=== PATIENT | female | born 1985 | race Caucasian/White ===

== ENCOUNTER 2019-11-10 18:20 | Inpatient (IN) | payer OTHER, SELFPAY ==
--- NOTE | ~2019-11-10 | XR_ITS ---
EXAMINATION: XR chest 2V DATE: 11/10/2019 19:41 INDICATION: Transient alteration of awareness TECHNIQUE: frontal and lateral views of the chest were obtained. COMPARISON: Chest radiograph dated 04/27/2019 FINDINGS: Relatively symmetric nipple shadows project over the bilateral anterior fifth ribs. Lungs are clear w ith no focal airspace opacities, pulmonary edema, pleural effusion or pneumothorax. The cardiomediast inal silhouette is normal. Cholecystectomy clips in the right upper quadrant. IMPRESSION: 1. No acute cardiopulmonary disease. Reviewed, dictated and finalized at location A. [facility]
--- NOTE | 2019-11-10 18:31 | ED.GENADULT ---
HPI - General Adult General Chief complaint: Unspecified Stated complaint: ELEVATED BLOOD SUGAR EARLIER TODAY Time Seen by Provider: 11/10/19 18:26 Source: patient, family and RN notes reviewed Mode of arrival: ambulatory Limitations: clinical condition History of Present Illness HPI narrative: A 34 y/o female, with a hx of DM I, presents to the ED d/t elevated BS. Per family member states that the pt has been in bed for the past 3 days because she felt like she was getting the flu . Since the pt has developed increasing generalized weakness and confusion and has been unable to walk. The pt's BS was 362 in triage. The family also notes that the pt is a known IV drug user. The pt keeps screaming that it hurts it hurts without any explanation of where when asked. The family denies the pt having any fevers or trying any treatments BOX MACHINE OPERATOR. complaint: Elevated BS Onset (ago): day(s) (3) Associated symptoms: confusion and weakness (generalized) Treatments prior to arrival: none Related Data Home Medications Medication Instructions Recorded Confirmed gabapentin 600 mg PO TID 08/25/19 08/25/19 ibuprofen 800 mg PO PRN 08/25/19 08/25/19 insulin glargine [Lantus Solostar 30 unit SUBCUT BID 08/25/19 08/25/19 U-100 Insulin] insulin lispro See Rx Instructions .ROUTE .COMPLEX 08/25/19 08/25/19 Allergies Allergy/AdvReac Type Severity Reaction Status Date / Time No Known Allergies Allergy Verified 11/10/19 19:01 Review of Systems Review of Systems: Narrative: Information was provided by family member. All systems reviewed & are unremarkable except as noted in HPI and below ROS unobtainable: unobtainable due to mental condition Constitutional: Constitutional: Denies fever(s) and Reports weakness (generalized) Neurologic: Reports confusion PMFSH Past Medical History Medical History Ankle fracture, right Anxiety Asthma Bipolar disorder Bronchitis Depression Ectopic HLD (hyperlipidemia) HPV (human papilloma virus) infection PCOS (polycystic ovarian syndrome) Peripheral neuropathy Schizophrenia Type 1 diabetes mellitus UTI (urinary tract infection) Surgical History Surgical History H/O LEEP Hx of cholecystectomy Family History Family History Grandparent Diabetes mellitus Acute myocardial infarction Hypertension Other Congestive heart failure Social History Social History Smoking packs per day: 0.5 Smoking cigarettes per day: 10.0 Years smoked: 16 Smoking pack-years: 8.00 Smoking status: Current every day smoker Tobacco type: cigarettes Alcohol intake: never Substance use: current Substance use type: marijuana and IV drugs Last use: 08/24/19 Gender identity (if verbalized by the patient): Female Spiritual care concerns: No Agree to blood products: Yes Comments PCP: Dr. Fox. Exam Const: General: acute distress moderate and ill appearing acutely and chronically Nutritional Appearance: thin HENMT: Mouth: Yes lip normal and Yes dry mucous membranes (with oral thrush) Eyes: Conjunctivae: conjunctivae normal Pupils: Equal, round and reactive pupils present Resp: Effort & Inspection: tachypneic Auscultation: clear to auscultation bilaterally Cardio: Rate: tachycardic Rhythm: regular rhythm GI: GI Palp: Yes Soft to palpation and Yes Tenderness to palpation present (GI) (diffuse but not consistent) Auscultation: normal bowel sounds Back/Spine/Pelvis: Other: Full ROM. Skin: General skin exam: normal color, dry skin and other (warm) Neuro: General: No patient oriented x3 (x2) and moves all extremities Extrem: General: full ROM Course Consultations Consultation #1: Discussed case with Dr. Hoffman (Handy Man). Accepts the pt to the ICU. Date:
[2019-11-10 18:34] LABS: Glucose Point of Care 362 (65-105)
--- NOTE | 2019-11-10 18:38 | ECG_ITS ---
Measurements Intervals [place] Rate: 90 P: 85 NE: 143 QRS: 15 QRSD: 81 T: 90 QT: 377 QTc: 462 Interpretive Statements SINUS RHYTHM RIGHT ATRIAL ENLARGEMENT LEFT ATRIAL ENLARGEMENT BORDERLINE T WAVE ABNORMALITY- DIFFUSE LEADS BASELINE ARTIFACT- I, III BORDERLINE ECG Electronically Signed On 11-11-2019 15:32:23 TRAILER STEERER by Estiven Farah D.O.
[2019-11-10 18:52] VITALS: BP 129/103; PULSE 88; RESP 13; TEMP 36.6; O2SAT 100
[2019-11-10] MEDS: SODIUM CHLORIDE 0.9% IV 3,000 ML 999 ML IV CONT (19:08)
[2019-11-10 19:25] LABS: Alveolar/Arterial O2 Gradient 17.1 mmHg; Base Excess ABG -12.9 mEq/l (+/-2.0); Carboxyhemoglobin 0.6 % THb (0-2.0); Fractional Inspired Oxygen 21 %; HCO3 ABG 11.8 mEq/l (22.0-26.0); Methemoglobin ABG 0.4 %THb (0-1.5); Oxygen Content ABG 20.7 %vol (16.0-22.0); Oxygen Saturation ABG 97.1 % (95.0-100.0); Oxyhemoglobin 96.4 % THb (90.0-100.0); PCO2 ABG 25.5 mmHg (35.0-45.0); PO2 ABG 102.1 mmHg (80.0-100.0); PO2 FiO2 Ratio Arterial Blood 4.86 %; Reduced Hemoglobin 2.6 %THb (0-5.0); Total Hemoglobin 15.2 g/dL (12.0-18.0)
[2019-11-10 19:26] LABS: Device ROOM AIR; Site Drawn RIGHT BRACHIAL; pH ABG 7.284 (7.350-7.450)
[2019-11-10 19:40] LABS: Prothrombin Time 13.3 Seconds (11.1-14.7)
[2019-11-10 19:41] LABS: Partial Thromboplastin Time 27.9 SECONDS (22.3-36.8)
[2019-11-10 19:46] LABS: Alanine Aminotransferase 25 U/L (4-35); Alkaline Phosphatase 118 U/L (38-126); Aspartate Amino Transferase 15 U/L (14-36); Beta-Hydroxybutyrate/Acetoacetate 3.72 mmol/L (0.02-0.27); Bilirubin,Total 0.6 mg/dL (0.2-1.3); Blood Urea Nitrogen 18 mg/dL (7-17); CRP < 0.5 mg/dL (<1.0); Carbon Dioxide 8 mmol/L (22-30); Chloride 99 mmol/L (98-107); Estimated CRCL calculation 119 ml/min; Estimated Glomerular Filt Rate > 60; Glucose 335 mg/dL (65-105); Magnesium 1.6 mg/dL (1.6-2.3); Phosphorus 2.6 mg/dL (2.5-4.5); Sodium 128 mmol/L (137-145)
[2019-11-10 20:05] VITALS: RESP 12; O2SAT 98
[2019-11-10 20:16] LABS: Lactic Acid Reflex 1.7 mmol/L (0.7-2.1)
[2019-11-10 20:22] LABS: Add Urine Microscopic? YES; Appearance Urine Clear (Clear); Bacteria Urine 1+ /hpf; Bilirubin Urine Negative (Negative); Blood Urine 1+ (Negative); Color Urine Yellow (Yellow); Glucose Urine UA 3+ mg/dL (Negative); Ketones Urine 2+ mg/dL (Negative); Leukocyte Esterase Ur 1+ LEU/UL (Negative); Mucus Urine Rare /lpf; Nitrate Urine Positive (Negative); Protein Urine 2+ mg/dL (Negative); Specific Grav Ur 1.027 (1.001-1.035); Squamous Epithelial Cell Urine Few /hpf (Few); Urobilinogen Urine Negative mg/dL (<2.0); WBC Urine 51-75 /hpf
[2019-11-10] MEDS: INSULIN HUMAN REGULAR (*BKC) 100 UNITS/ML 6 UNITS IV PUSH (21:00)
[2019-11-10] MEDS: INSULIN HUMAN REGULAR (*BKC) 100 UNITS in SODIUM CHLORIDE 0.9% IV 99 ML 5.5 UNITS IV CONT (21:01)
[2019-11-10 21:07] LABS: Glucose Point of Care 317 (65-105)
[2019-11-10 21:39] LABS: Amphetamine Screen Urine Negative (Negative); Barbiturate Screen Urine Negative (Negative); Benzodiazepines Screen Urine Negative (Negative); Cannabinoid Screen Urine Positive (Negative); Cocaine Screen Urine Negative (Negative); Methadone Screen Urine Negative (Negative); Opiate Screen Urine Positive (Negative); Phencyclidine Screen Urine Negative (Negative)
[2019-11-10] MEDS: KCL 20 MEQ/D5/0.45% SOD CHL 1,000 ML 125 ML IV CONT (21:46)
[2019-11-10] MEDS: SODIUM CHLORIDE 0.9% IV 1,000 ML 150 ML (21:47)
[2019-11-10 22:08] LABS: Glucose Point of Care 249 (65-105)
--- NOTE | 2019-11-10 22:10 | PC.NURSE ---
Per EDP start IV abx. Multiple attempts by this RN, 2 ED techs and the EDP to obtain blood cultures.
[2019-11-10 22:11] VITALS: BP 112/70; PULSE 100; RESP 16; O2SAT 98
--- NOTE | 2019-11-10 22:29 | PM.IMHP ---
H&P: HPI History of Present Illness Chief complaint: DKA Narrative: This is a 34-year-old female with known type 1 diabetes mellitus with peripheral neuropathy that was diagnosed approximately 2 years ago and who is well known to our hospitalist service for previous admissions for poorly controlled diabetes. The patient presented to the hospital [facility] with her aunt whom she lives with secondary to diffuse body aches and hyperglycemia. The patient's aunt admits to me that the patient has not been taking her medications as prescribed and has not been watching her blood sugars carefully. Over the past few days the patient has gotten more nauseated, complaining of diffuse body aches, with increased urinary frequency, and more somnolent. She denies any recent fevers, chest pain, shortness of breath, dysuria, hematuria, diarrhea, or rectal bleeding. She has had a sporadic cough. The patient is known to smoke cigarettes chronically and continues to do so. The patient's and tells me that she has not used methamphetamines over the past 5 days although she is known to chronically use methamphetamine. The patient was evaluated emergency room [facility] and found to be dehydrated, hyperglycemic with a blood glucose of 335 mg/dl, an elevated anion gap of 21, pH of 7.2 eight for on arterial blood gas and positive serum ketones. The patient has been given normal saline IV bolus in the ER and started on an insulin drip. Computer Lab Aide has been consulted and we been asked to admit the patient to the hospital for further care. Review of Systems Review of Systems: All systems reviewed & are unremarkable except as noted in HPI and below PMFSH Past Medical History Medical History Ankle fracture, right Anxiety Asthma Bipolar disorder Bronchitis Depression Ectopic HLD (hyperlipidemia) HPV (human papilloma virus) infection PCOS (polycystic ovarian syndrome) Peripheral neuropathy Schizophrenia Type 1 diabetes mellitus UTI (urinary tract infection) Surgical History Surgical History H/O LEEP Hx of cholecystectomy Family History Family History Grandparent Diabetes mellitus Acute myocardial infarction Hypertension Other Congestive heart failure Social History Social History Smoking packs per day: 0.5 Smoking cigarettes per day: 10.0 Years smoked: 16 Smoking pack-years: 8.00 Smoking status: Current every day smoker Tobacco type: cigarettes Alcohol intake: never Substance use: current Substance use type: marijuana and IV drugs Last use: 08/24/19 Gender identity (if verbalized by the patient): Female Spiritual care concerns: No Agree to blood products: Yes Meds Home Medications and Allergies Home Medications Medication Instructions Recorded Confirmed Type gabapentin 600 mg PO TID 08/25/19 08/25/19 History ibuprofen 800 mg PO PRN 08/25/19 08/25/19 History insulin glargine [Lantus Solostar 30 unit SUBCUT BID 08/25/19 08/25/19 History U-100 Insulin] insulin lispro See Rx Instructions .ROUTE .COMPLEX 08/25/19 08/25/19 History Allergies Allergy/AdvReac Type Severity Reaction Status Date / Time No Known Allergies Allergy Verified 11/10/19 19:01 Vital Signs Vital Signs - 24 hr 11/10/19 18:52 11/10/19 20:05 11/10/19 22:11 Temperature 36.6 C Pulse Rate 88 100 Respiratory Rate 13 12 16 Blood Pressure 129/103 H 112/70 Pulse Oximetry 100 98 98 Exam Const: General: ill appearing and other (somnolent+) Nutritional Appearance: thin Orientation/consciousness: Other orientation findings (somnolent+) HENMT: Head: normal to inspection General nose exam: Normal external nose present Face and sinus: normal facial exam Mouth: Yes Normal oral and palatal mucosa present
[2019-11-10 23:01] LABS: Glucose Point of Care 290 (65-105)
[2019-11-10 23:45] VITALS: BP 124/84; PULSE 88; RESP 18; O2SAT 96
[2019-11-11] VITALS (12 sets, daily range): BP systolic 84–114; BP diastolic 59–81; PULSE 77–124; RESP 12–22; TEMP 36.6; O2SAT 97–100; BMI 19.1
--- NOTE | 2019-11-11 00:03 | PCRCNOTE ---
Entered ED 2 for ABG draw. Agustina Yepez, lab, drawing venous blood. Discussed ABG draw with patient who became upset. Patient stated Your not sticking me until I get something to eat. If you stick me I'll punch you in the face. Patient then looked at Agustina and stated you're kathy you didn't get punched in the face . I replied to patient to be careful, that we don't tolerate aggression here. I spoke with RN Cherelle Toney - the decision to not draw the ABG was made.
[2019-11-11 00:04] LABS: Basophils Absolute Auto 0.1 K/mm3 (0.0-0.1); Basophils Percent Auto 0.5 % (0.2-1.2); Eosinophils Absolute Auto 0.1 K/mm3 (0-0.3); Eosinophils Percent Auto 0.7 % (0-4.4); Hematocrit 34.8 % (37.0-47.0); Immature Granulocyte Absolute 0.04 K/mm3 (0.00-0.031); Immature Granulocyte Percent A 0.4 % (0-0.5); Lymphocytes Absolute Auto 3.46 K/mm3 (0.9-3.2); Lymphocytes Percent Auto 30.9 % (18.3-44.2); Mean Corpuscular HGB Conc 34.5 g/dl (32-36); Mean Corpuscular Hemoglobin 30.5 pg (26-34); Mean Corpuscular Volume 88.3 fl (80-100); Mean Platelet Volume 10.3 fl (7.4-10.4); Monocytes Absolute Auto 0.7 K/mm3 (0.1-0.6); Monocytes Percent Auto 6.3 % (2.6-8.5); Neutrophils Absolute Auto 6.8 K/mm3 (1.3-6.7); Neutrophils Percent Auto 61.2 % (45.5-73.1); Platelet Count Result 228 k/mm3 (150-375); Red Blood Count 3.94 M/mm3 (4.2-5.4); White Blood Count 11.2 K/mm3 (4.5-10.0)
--- NOTE | 2019-11-11 00:04 | PC.NURSE ---
ED respiratory therapist, Crissy, comes to this nurse and states the patient stated I will punch you in the face if you poke me with that needle again until I get something to eat. Crissy stated she informed the patient that the hospital does not tolerate aggression toward staff or other healthcare workers or patients. Agustina, from Phlebotomy is in room drawing blood from patient at this time. This nurse goes into room to speak with patient and informs her on the importance of getting the ABG. Patient yelling leave me alone! Give me something to eat and drink! I'm not doing anything until I get something!! Patient thrashing in bed, pulling her leads off and pulse ox off. This nurse informs patient again that she is NPO and I am unable to give her anything to eat or drink per doctors orders.
--- NOTE | 2019-11-11 00:10 | PC.NURSE ---
This nurse informs EDP that patient is refusing bedside blood glucose and is pulling off her leads and is refusing everything until I get something to eat or drink. EDP goes into room and speaks with patient.
[2019-11-11 00:19] LABS: Blood Urea Nitrogen 16 mg/dL (7-17); Calcium 7.8 mg/dL (8.4-10.2); Carbon Dioxide 13 mmol/L (22-30); Chloride 105 mmol/L (98-107); Estimated CRCL calculation 119 ml/min; Estimated Glomerular Filt Rate > 60; Glucose 266 mg/dL (65-105); Magnesium 1.3 mg/dL (1.6-2.3); Phosphorus 1.6 mg/dL (2.5-4.5); Sodium 131 mmol/L (137-145)
[2019-11-11 00:32] LABS: Glucose Point of Care 236 (65-105)
[2019-11-11 00:53] LABS: Hemoglobin A1C > 14.0 % (<5.7)
[2019-11-11 02:05] LABS: Glucose Point of Care 252 (65-105)
--- NOTE | 2019-11-11 02:20 | ADMGEN ---
This patient, Madai Jackson, was admitted to -. Patient/family oriented to hospital policies and general routines including ID bracelet, bed and alarms, visiting hours, pain management, procedures, bathroom and other care routines, personal items, smoking policy, room service/diet, and visiting hours. Valuables list has been completed. Information on how to activate the Rapid Response Team has been discussed. Patient/Family are encouraged to report perceived risks to care and to ask questions if they do not understand what they are told or what they should do.
[2019-11-11 02:40] LABS: Glucose Point of Care 228 (65-105)
[2019-11-11] MEDS: MAGNESIUM SULF 2 GM/WATER 50ML 2 GM/50 ML BAG IVPB (02:55)
[2019-11-11] MEDS: KCL 20 MEQ/SW 100 ML 100 ML 50 MEQ IVPB (03:31)
[2019-11-11 03:44] LABS: Glucose Point of Care 246 (65-105)
--- NOTE | 2019-11-11 03:45 | PC.NURSE ---
Attempted to administer KCl IVPB per ERP order. Pt stated that infusion was burning. Rate was decreased by half, down to 25mls/hr. Pt states infusion was still burning. States take it out. Take the IV out. Infusion was put on hold. Notified Dr. Isabel that pt is refusing KCl. No new orders at this time. Peripheral IV flushes without any issues.
[2019-11-11 04:22] LABS: Glucose Point of Care 225 (65-105)
[2019-11-11 04:31] LABS: Basophils Absolute Auto 0.1 K/mm3 (0.0-0.1); Basophils Percent Auto 0.4 % (0.2-1.2); Eosinophils Absolute Auto 0.1 K/mm3 (0-0.3); Eosinophils Percent Auto 1.2 % (0-4.4); Hematocrit 34.7 % (37.0-47.0); Immature Granulocyte Absolute 0.06 K/mm3 (0.00-0.031); Immature Granulocyte Percent A 0.5 % (0-0.5); Lymphocytes Absolute Auto 4.09 K/mm3 (0.9-3.2); Lymphocytes Percent Auto 35.6 % (18.3-44.2); Mean Corpuscular HGB Conc 34.6 g/dl (32-36); Mean Corpuscular Volume 86.8 fl (80-100); Mean Platelet Volume 10.1 fl (7.4-10.4); Monocytes Absolute Auto 0.7 K/mm3 (0.1-0.6); Monocytes Percent Auto 6.2 % (2.6-8.5); Neutrophils Absolute Auto 6.4 K/mm3 (1.3-6.7); Neutrophils Percent Auto 56.1 % (45.5-73.1); Platelet Count Result 222 k/mm3 (150-375); White Blood Count 11.5 K/mm3 (4.5-10.0)
[2019-11-11 04:34] LABS: Base Excess ABG -8.9 mEq/l (+/-2.0); Fractional Inspired Oxygen 21 %; HCO3 ABG 15.1 mEq/l (22.0-26.0); Oxygen Content ABG 17.8 %vol (16.0-22.0); Oxygen Saturation ABG 97.8 % (95.0-100.0); Oxyhemoglobin 96.6 % THb (90.0-100.0); PCO2 ABG 27.5 mmHg (35.0-45.0); PO2 ABG 106.8 mmHg (80.0-100.0); PO2 FiO2 Ratio Arterial Blood 5.09 %; pH ABG 7.357 (7.350-7.450)
[2019-11-11 04:36] LABS: Device ROOM AIR; Modified Allen's Test Pass; Site Drawn LEFT RADIAL
[2019-11-11 04:41] LABS: Blood Urea Nitrogen 15 mg/dL (7-17); Calcium 8.1 mg/dL (8.4-10.2); Carbon Dioxide 17 mmol/L (22-30); Chloride 106 mmol/L (98-107); Estimated CRCL calculation 118 ml/min; Estimated Glomerular Filt Rate > 60; Glucose 235 mg/dL (65-105); Potassium 3.1 mmol/L (3.4-5.0); Sodium 133 mmol/L (137-145)
[2019-11-11 05:24] LABS: Glucose Point of Care 204 (65-105)
--- NOTE | 2019-11-11 05:25 | PC.NURSE ---
Pt belligerent with staff and spitting on the floor. States she needs water. Pt has been instructed that she cannot have anything to eat or drink per physician order while she is on the insulin gtt. Pt states she is nauseated. Pt states she has thrush and needs to rinse her mouth out, but refuses to use swabs. Pt's mother is at bedside and is asking pt to listen to staff.
[2019-11-11] MEDS: KCL 20 MEQ/D5/0.45% SOD CHL 1,000 ML 150 ML IV CONT (05:41)
[2019-11-11 06:34] LABS: Glucose Point of Care 177 (65-105)
--- NOTE | 2019-11-11 07:08 | PC.NURSE ---
Left message for Haritha, educational audiologist, asking for callback regarding a consult on this pt. Notified community relations director that call was placed.
[2019-11-11 07:35] LABS: Glucose Point of Care 170 (65-105)
[2019-11-11 07:56] LABS: Blood Urea Nitrogen 14 mg/dL (7-17); Calcium 8.3 mg/dL (8.4-10.2); Carbon Dioxide 18 mmol/L (22-30); Chloride 107 mmol/L (98-107); Estimated CRCL calculation 118 ml/min; Estimated Glomerular Filt Rate > 60; Glucose 154 mg/dL (65-105); Potassium 3.3 mmol/L (3.4-5.0); Sodium 133 mmol/L (137-145)
[2019-11-11] MEDS: INSULIN GLARGINE (*BKC) 100 UNITS/ML 15 UNITS SUB-Q (09:34)
[2019-11-11 09:57] LABS: Glucose Point of Care 140 (65-105)
[2019-11-11 11:51] LABS: Blood Urea Nitrogen 14 mg/dL (7-17); Calcium 7.8 mg/dL (8.4-10.2); Carbon Dioxide 16 mmol/L (22-30); Chloride 101 mmol/L (98-107); Estimated CRCL calculation 118 ml/min; Estimated Glomerular Filt Rate > 60; Glucose 336 mg/dL (65-105); Potassium 3.8 mmol/L (3.4-5.0); Sodium 127 mmol/L (137-145)
--- NOTE | 2019-11-11 12:40 | WPDCNINT ---
Assessment and Plan Assessment and plan (1) DKA (diabetic ketoacidoses): Qualifiers: Diabetes mellitus complication detail: with coma Diabetes mellitus type: type 1 Qualified Code(s): E10.11 - Type 1 diabetes mellitus with ketoacidosis with coma Code(s): E11.10 - Type 2 diabetes mellitus with ketoacidosis without coma Status: Acute Assessment and Plan: Patient has been restarted on her home dose of Lantus along with SSI. Her IV fluids have been changed from D5 LR. she has been started on a diabetic diet. She will be continued on IV fluids. (2) Acute dehydration: Code(s): E86.0 - Dehydration Status: Acute Assessment and Plan: Continue IV hydration. With IV fluids. Urine output has been adequate and BUN creatinine are stable. (3) Abnormal urinalysis: Code(s): R82.90 - Unspecified abnormal findings in urine Status: Acute Assessment and Plan: Urine culture pending. Continue IV antibiotics. (4) Acute hyponatremia: Code(s): E87.1 - Hypo-osmolality and hyponatremia Status: Acute Assessment and Plan: Appears to be pseudohyponatremia secondary to hyperglycemia. (5) Tobacco abuse: Code(s): Z72.0 - Tobacco use Status: Chronic Assessment and Plan: The patient will need to be counseled on tobacco cessation. (6) Marijuana abuse: Code(s): F12.10 - Cannabis abuse, uncomplicated Status: Chronic Assessment and Plan: The patient will need to be counseled on marijuana abuse. Additional Plan total time spent - 35 min Full code Hand Router Operator Consult Note Consult date: 11/11/19 Time Seen: 12:52 HPI: Madai Jackson is a 34 year old female With past medical history significant for diabetes mellitus and polysubstance abuse, who presented to the emergency room along with her and due to feeling very tired and thirsty all the time. as per medical records patient has been noncompliant with her diabetic medications. Her U tox was also positive for opiates and marijuana. Patient has history of heroin and methamphetamine abuse. In the emergency room patient was noted to be very dehydrated. Her UA was positive for infection. Her white count was mildly elevated at 11.5. however she was noted to have sodium of 128 with a bicarb of 8. Her BUN creatinine were stable. Her blood glucose was 335. She was acidotic with the pH of 7.28. Patient was started on insulin drip per protocol. She was given 2 L of IV fluid bolus. She was placed on IV fluid protocol per DKA and was admitted to ICU for further care. On my assessment this morning patient continues to be on the insulin drip. She is also on D5 IV fluids. The patient is complaining of cramping abdominal pain as she feels she is very hungry and we are not giving her any food. She was given Lantus and IV fluids were continued. Her insulin drip has been turned off. She has been started on a diabetic diet. Review of Systems Review of Systems: Narrative: Constitutional- awake ,in no distress, hungry Eyes/ears/nose- No visual complaints , normal hearing CVS- denies SOB , chest pain , palpitations Resp- denies, SOB , cough , hemoptysis , congestion, wheezing GI- denies diarrhea, abdominal pain due to being hungry, nausea/vomiting , constipation neuro- denies LOC, SZ, syncope, weakness , neuropathy musculoskeletal- denies joint pain , deformity Skin- no new rashes or skin breakdown psychatric- denies depression, hallucinations , anxiety , mood swings PMFSH Past Medical History Medical History Ankle fracture, right Anxiety Asthma Bipolar disorder Bronchitis Depression Ectopic HLD (hyperlipidemia) HPV (human papilloma virus) infection PCOS (polycystic ovarian syndrome) Peripheral neuropathy Schizophrenia Type 1 diabetes mellitus UTI (urinary tract infection) Surgical History
[2019-11-11] MEDS: LACTATED RINGERS 1,000 ML 100 ML IV CONT (12:41)
[2019-11-11 13:25] LABS: Glucose Point of Care 339 (65-105)
[2019-11-11 15:44] LABS: Blood Urea Nitrogen 14 mg/dL (7-17); Calcium 7.9 mg/dL (8.4-10.2); Carbon Dioxide 15 mmol/L (22-30); Chloride 101 mmol/L (98-107); Estimated CRCL calculation 100 ml/min; Estimated Glomerular Filt Rate > 60; Glucose 392 mg/dL (65-105); Potassium 3.7 mmol/L (3.4-5.0); Sodium 129 mmol/L (137-145)
[2019-11-11] MEDS: IBUPROFEN 600 MG TABLET PO (17:04)
[2019-11-11] MEDS: INSULIN ASPART (*BKC) 100 UNITS/ML SUB-Q ×2 (17:09)
[2019-11-11] MEDS: GABAPENTIN 300 MG CAPSULE 600 MG PO (17:10)
[2019-11-11 19:59] LABS: Glucose Point of Care 368 (65-105)
--- NOTE | 2019-11-11 21:13 | PC.NURSE ---
pt yelling val wants a turkey sandwich rn advised her that her sugar is too high and that it could put her back on an insulin drip. pt sayd she doesnt care. advise pt she should not be yelling at her mom. pt say she doesnt care and wants a chicken sandwich. pt states she wants to go home. pt given AMA paperwork brought to front door in wheel chair after ivs removed
== END 2019-11-11 21:00 | disposition left against medical advice (07) | DRG 420 ==
LOC: ANHED 11-11 02:46 → ANHICU 11-11 05:59
PROVIDERS: Admitting Provider Family Medicine; Emergency Provider Emergency Medicine; Visit Provider Family Medicine
DX: E10.11 Type 1 diabetes mellitus with ketoacidosis with coma (principal); E86.0 Dehydration; N39.0 Urinary tract infection, site not specified; E87.1 Hypo-osmolality and hyponatremia; E10.42 Type 1 diabetes mellitus with diabetic polyneuropathy; F31.9 Bipolar disorder, unspecified; F20.9 Schizophrenia, unspecified; E78.5 Hyperlipidemia, unspecified; F17.210 Nicotine dependence, cigarettes, uncomplicated; F12.10 Cannabis abuse, uncomplicated; Z91.14 Patient's other noncompliance with medication regimen; Z90.49 Acquired absence of other specified parts of digestive tract
CPT/HCPCS: 36415; 36600; 51701; 71046; 80048; 80053; 80307; 81001; 82010; 82375; 82805; 82948; 83036; 83050; 83605; 83735; 84100; 85025; 85610; 85730; 86140; 87040; 87077; 87081; 87086; 87088; 87186; 87804; 93005; 96361; 96365; 96366; 96367; 96368; 99291; A9270; J0696; J1815; J3475; J3480; J7030; J7120

== ENCOUNTER 2020-01-22 20:07 | Inpatient (IN) | payer OTHER, SELFPAY ==
[2020-01-22] VITALS (9 sets, daily range): BP systolic 99–142; BP diastolic 33–96; PULSE 95–110; RESP 13–28; TEMP 36.8; O2SAT 99–100
--- NOTE | ~2020-01-22 | CT_ITS ---
EXAMINATION: CT abdomen pelvis w con INDICATION: Lower abdominal pain TECHNIQUE: Computed tomographic images of the abdomen and pelvis were obtained after the administrati on of 100 cc of Omnipaque 350 intravenous contrast. The dose-length product (DLP) was 342.18 mGy-cm. Automated exposure control and iterative reconstruction technique were employed. COMPARISON: None available FINDINGS: The lung bases are clear. The heart size is normal. The gallbladder is surgically absent. T he liver, spleen, pancreas, and adrenal glands are normal. There is heterogeneous enhancement involvi ng the upper pole of the left kidney with a 3.6 x 3.1 cm area of fluid and soft tissue density. There is a 6 mm cyst of the right kidney. No pathologically enlarged abdominal or pelvic lymph nodes are i dentified. The bladder is distended. There is mild lumbar spondylosis. IMPRESSION: 1. Heterogeneous enhancement of the left kidney upper pole with a 3.6 cm area of fluid and soft tissu e density which may reflect a phlegmon or abscess. Reviewed, dictated and finalized at location A. IMPRESSION: 1. Heterogeneous enhancement of the left kidney upper pole with a 3.6 cm area o f fluid and soft tissue density which may reflect a phlegmon or abscess.
--- NOTE | ~2020-01-22 | CT_ITS ---
EXAMINATION: CT brain wo con INDICATION: Headache COMPARISON: None TECHNIQUE: Standard unenhanced head CT. The dose-length product (DLP) was 605.33 mGy-cm. The mA was a djusted according to patient size. Iterative reconstruction technique was employed. FINDINGS: There is no intracranial hemorrhage, acute infarction, or abnormal mass lesion. The ventric les are normal. There is no abnormal mass effect or midline shift. The menjivar-white matter differentiat ion is normal. The basal cisterns are patent. The orbits are normal. The paranasal sinuses, mastoids and calvarium are normal. IMPRESSION: 1. No acute intracranial abnormality. Reviewed, dictated and finalized at location A.
--- NOTE | ~2020-01-22 | XR_ITS ---
EXAMINATION: XR chest 1V portable INDICATION: Chills TECHNIQUE: Portable AP chest at 2210 hours COMPARISON: 11/10/2019 FINDINGS: The lungs are free of acute opacities. There is no pleural effusion or pneumothorax. The ca rdiomediastinal silhouette is normal. The visualized bones and soft tissues are unremarkable. IMPRESSION: 1. No acute cardiopulmonary abnormality. Reviewed, dictated and finalized at location A.
[2020-01-22 20:17] LABS: Glucose Point of Care > 500 (65-105)
[2020-01-22] MEDS: SODIUM CHLORIDE 0.9% IV 1,000 ML 999 ML (20:25)
--- NOTE | 2020-01-22 21:00 | ECG_ITS ---
Measurements Intervals [place] Rate: 91 P: 76 AL: 157 QRS: 46 QRSD: 90 T: 89 QT: 343 QTc: 422 Interpretive Statements SINUS RHYTHM WITH SINUS ARRHYTHMIA RIGHT ATRIAL ENLARGEMENT BORDERLINE T WAVE ABNORMALITY- INF/LAT LEADS BASELINE ARTIFACT- V4-V6 BORDERLINE ECG Electronically Signed On 01-23-2020 7:51:47 CDT by Estiven Farah D.O.
--- NOTE | 2020-01-22 21:02 | ED.ABDPAIN ---
HPI - Abdominal Pain General Chief Complaint: Abdominal Pain Stated Complaint: abd pain, vomitting Time Seen by Provider: 01/22/20 20:43 Source: patient and family (mother) Mode of arrival: ambulatory Limitations: clinical condition History of Present Illness HPI narrative: This patient is 34 yo female with h/o IDDM, DKA who presents from home with nausea, vomiting and not feeling well. Patient is poor historian due to clinical condition. Her mother is at bedside and she states patient has not felt well for 3 days. Her mother states she had 2 episodes of vomiting today but denies vomiting prior to today. Patient does admit that she has not taken insulin in 3 days due to her not feeling. She does not explain exactly why she doesn't feel well. Patient states she has headache and her mother reports she has history migraines. Her mother states they have checked and patient has not been having a fever, cough, or cold symtpoms. Patient states she has not used methamphetamines in 4 days. . MD elicited complaint: abdominal pain Related Data Home Medications Medication Instructions Recorded Confirmed gabapentin 600 mg PO TID 08/25/19 01/23/20 ibuprofen 800 mg PO Q6H PRN 08/25/19 01/23/20 insulin glargine [Lantus Solostar 30 unit SUBCUT BID 08/25/19 01/23/20 U-100 Insulin] insulin lispro See Rx Instructions .ROUTE .COMPLEX 08/25/19 01/23/20 Allergies Allergy/AdvReac Type Severity Reaction Status Date / Time No Known Allergies Allergy Verified 11/10/19 19:01 Review of Systems Review of Systems: ROS unobtainable: Yes unobtainable due to medical condition Gastrointestinal: Gastrointestinal: Reports nausea Neurologic: Reports headache(s) PMFSH Past Medical History Medical History Ankle fracture, right Anxiety Asthma Bipolar disorder Bronchitis Depression Ectopic HLD (hyperlipidemia) HPV (human papilloma virus) infection PCOS (polycystic ovarian syndrome) Peripheral neuropathy Schizophrenia Type 1 diabetes mellitus UTI (urinary tract infection) Surgical History Surgical History H/O LEEP Hx of cholecystectomy Social History Social History Smoking packs per day: 0.5 Smoking cigarettes per day: 10.0 Years smoked: 16 Smoking pack-years: 8.00 Smoking status: Current every day smoker Tobacco type: cigarettes Alcohol intake: unknown Substance use: current Substance use type: marijuana and methamphetamine Last use: 01/18/20 Gender identity (if verbalized by the patient): Female Spiritual care concerns: No Agree to blood products: Yes Exam Const: General: ill appearing Nutritional Appearance: thin HENMT: Head: normocephalic and atraumatic Mouth: Yes dry mucous membranes and Yes Abnormal oral and palatal mucosa present (thrush) Teeth and gingiva: abnormal tooth and associated gingiva Throat: posterior oropharynx abnormal (thrush) Eyes: Pupils: Equal, round and reactive pupils present EOM: EOMs intact bilaterally Neck: Neck: no lymphadenopathy Chest: Chest palpation & inspection: normal inspection of the chest Resp: Effort & Inspection: normal respiratory effort Auscultation: clear to auscultation bilaterally Cardio: Rate: regular rate Rhythm: regular rhythm Heart sounds: no murmurs GI: Inspection: non-distended GI Palp: Yes Soft to palpation, No Tenderness to palpation present (GI), No Guarding due to palpation present (GI) and No Rigid due to palpation Skin: General skin exam: mottling Neuro: General: moves all extremities Extrem: General: no pedal edema Psych: Appearance: disheveled Course Reevaluation(s) Reevaluation #1: Patient presented in DKA. She was found to have significant leukocytosis so CT scan performed. CT scan shows possible phlegmon/abscess to left kidney with a
[2020-01-22] MEDS: METOCLOPRAMIDE HCL INJ 10 MG/2 ML VIAL IV PUSH (21:15)
[2020-01-22] MEDS: INSULIN HUMAN REGULAR (*BKC) 100 UNITS/ML IV PUSH (21:15)
[2020-01-22 21:22] LABS: Alveolar/Arterial O2 Gradient 2.8 mmHg; Base Excess ABG -25.3 mEq/l (+/-2.0); Carboxyhemoglobin 0.8 % THb (0-2.0); Fractional Inspired Oxygen 21 %; Methemoglobin ABG 0.4 %THb (0-1.5); Oxygen Saturation ABG 97.4 % (95.0-100.0); Oxyhemoglobin 96.6 % THb (90.0-100.0); PCO2 ABG 11.3 mmHg (35.0-45.0); PO2 ABG 133.4 mmHg (80.0-100.0); PO2 FiO2 Ratio Arterial Blood 6.35 %; Reduced Hemoglobin 2.2 %THb (0-5.0); Total Hemoglobin 15.3 g/dL (12.0-18.0); pH ABG 7.046 (7.350-7.450)
[2020-01-22 21:23] LABS: Device ROOM AIR; Modified Allen's Test Pass; Site Drawn LEFT BRACHIAL
--- NOTE | 2020-01-22 21:24 | PC.NURSE ---
Patient refused for tech to draw blood. patient stated that she will fight engineering technician if they stick her again.
--- NOTE | 2020-01-22 21:47 | PC.NURSE ---
Patient is a hard stick. Call lab 4 times to have somebody to come up.
[2020-01-22] MEDS: SODIUM CHLORIDE 0.9% IV 1,000 ML 999 ML IV CONT (21:49)
[2020-01-22 21:58] LABS: Add Urine Microscopic? YES; Appearance Urine Cloudy (Clear); Bacteria Urine Trace /hpf; Bilirubin Urine Negative (Negative); Blood Urine 2+ (Negative); Color Urine Straw (Yellow); Glucose Urine UA 3+ mg/dL (Negative); Ketones Urine 2+ mg/dL (Negative); Leukocyte Esterase Ur 3+ LEU/UL (Negative); Mucus Urine Rare /lpf; Nitrate Urine Negative (Negative); Protein Urine 2+ mg/dL (Negative); RBC Urine 51-75 /hpf (0-2); Specific Grav Ur 1.021 (1.001-1.035); Squamous Epithelial Cell Urine Occasional /hpf (Few); Urobilinogen Urine Negative mg/dL (<2.0); WBC Urine >75 /hpf
[2020-01-22 22:14] LABS: Basophils Absolute Auto 0.2 K/mm3 (0.0-0.1); Basophils Percent Auto 0.7 % (0.2-1.2); Hematocrit 47.4 % (37.0-47.0); Hemoglobin 15.1 g/dL (12.0-15.0); Immature Granulocyte Absolute 0.36 K/mm3 (0.00-0.031); Immature Granulocyte Percent A 1.5 % (0-0.5); Lymphocytes Absolute Auto 3.04 K/mm3 (0.9-3.2); Lymphocytes Percent Auto 12.4 % (18.3-44.2); Mean Corpuscular HGB Conc 31.9 g/dl (32-36); Mean Corpuscular Hemoglobin 31.3 pg (26-34); Mean Corpuscular Volume 98.3 fl (80-100); Monocytes Absolute Auto 1.5 K/mm3 (0.1-0.6); Monocytes Percent Auto 6.2 % (2.6-8.5); Neutrophils Absolute Auto 19.3 K/mm3 (1.3-6.7); Neutrophils Percent Auto 79.2 % (45.5-73.1); Platelet Count Result 340 k/mm3 (150-375); Red Blood Count 4.82 M/mm3 (4.2-5.4); Red Cell Distribution Width 12.9 % (11.5-14.5); White Blood Count 24.4 K/mm3 (4.5-10.0)
[2020-01-22 22:28] LABS: Alanine Aminotransferase 24 U/L (4-35); Albumin Level 4.4 g/dL (3.5-5.1); Alkaline Phosphatase 184 U/L (38-126); Aspartate Amino Transferase 17 U/L (14-36); Bilirubin,Total 0.3 mg/dL (0.2-1.3); Blood Urea Nitrogen 25 mg/dL (7-17); Calcium 8.9 mg/dL (8.4-10.2); Carbon Dioxide < 5 mmol/L (22-30); Chloride 98 mmol/L (98-107); Estimated CRCL calculation 52 ml/min; Estimated Glomerular Filt Rate 52; Lipase 190 U/L (23-300); Magnesium 1.9 mg/dL (1.6-2.3); Phosphorus 5.8 mg/dL (2.5-4.5); Potassium 5.3 mmol/L (3.4-5.0); Sodium 132 mmol/L (137-145)
[2020-01-22 22:36] LABS: Glucose 708 mg/dL (65-105)
[2020-01-22 22:57] LABS: Hemoglobin A1C > 14.0 % (<5.7)
[2020-01-22 23:08] LABS: Beta-Hydroxybutyrate/Acetoacetate 7.77 mmol/L (0.02-0.27)
[2020-01-23] VITALS (11 sets, daily range): BP systolic 100–129; BP diastolic 64–104; PULSE 81–112; RESP 15–20; TEMP 36.8–36.9; O2SAT 99–100; BMI 18.7
--- NOTE | 2020-01-23 00:09 | PC.NURSE ---
PT BEDSIDE BLOOD SUGAR READ HIGH, Dr. Hahn made aware. Ok to start Insulin drip at rate per pharm.
[2020-01-23] MEDS: INSULIN HUMAN REGULAR (*BKC) 100 UNITS in SODIUM CHLORIDE 0.9% IV 99 ML 12.8 UNITS IV CONT (00:11)
[2020-01-23 00:25] LABS: Lactic Acid Reflex 2.6 mmol/L (0.7-2.1)
[2020-01-23 00:49] LABS: Glucose 673 mg/dL (65-105)
[2020-01-23 00:49] LABS: Glucose Point of Care > 500 (65-105)
--- NOTE | 2020-01-23 02:05 | ADMGEN ---
This patient, Madai Jackson, was admitted to Intensive Care Unit-12. Patient/family oriented to hospital policies and general routines including ID bracelet, bed and alarms, visiting hours, pain management, procedures, bathroom and other care routines, personal items, smoking policy, room service/diet, and visiting hours. Valuables list has been completed. Information on how to activate the Rapid Response Team has been discussed. Patient/Family are encouraged to report perceived risks to care and to ask questions if they do not understand what they are told or what they should do.
[2020-01-23] MEDS: metroNIDAZOLE 500 MG/ISO 100ML 500 MG/100 ML BAG 100 MG IVPB ×3 (02:10→13:15)
[2020-01-23] MEDS: SODIUM CHLORIDE 0.9% IV 1,000 ML 150 ML IV CONT (02:10)
[2020-01-23 02:40] LABS: Glucose Point of Care > 500 (65-105)
[2020-01-23 03:10] LABS: Reflex Lactic Acid Yes or No Add Lactic
[2020-01-23 03:30] LABS: Glucose Point of Care 430 (65-105)
[2020-01-23 03:48] LABS: Blood Urea Nitrogen 19 mg/dL (7-17); Calcium 8.4 mg/dL (8.4-10.2); Carbon Dioxide 11 mmol/L (22-30); Chloride 107 mmol/L (98-107); Estimated CRCL calculation 101 ml/min; Estimated Glomerular Filt Rate > 60; Glucose 427 mg/dL (65-105); Potassium 3.7 mmol/L (3.4-5.0); Sodium 131 mmol/L (137-145)
[2020-01-23 03:48] LABS: Lactic Acid 2.1 mmol/L (0.7-2.1)
[2020-01-23 04:36] LABS: Glucose Point of Care 310 (65-105)
--- NOTE | 2020-01-23 05:24 | PM.IMHP ---
H&P: HPI History of Present Illness Chief complaint: DKA, pyelonephritis Narrative: Madai Jackson is a 34 year old female with a past medical history of polysubstance abuse, insulin-dependent diabetes with multiple admissions for DKA and medication noncompliance who presented to the ER with abdominal pain. Source of information is past medical records, ER records in the patient who is a poor historian. The patient had been admitted to hospital in August and in November for DKA and has left against medical advice during both of those hospitalizations. The patient was uncooperative during evaluation and would not provide any information. According to the ER documentation, the patient had presented home with nausea and vomiting and not feeling well. She had not taken her insulin in 3 days due to not feeling well. Patient had had 2 episodes of vomiting prior to coming to the ER. The patient would not elaborate on how she did not feel well. The patient was reporting a headache in the ER and reportedly has a history of migraines. However the patient also has history of methamphetamine and heroin abuse. She last used methamphetamine 4 days ago. The patient has not been having any fever, cough or cold symptoms. The patient did not have any abdominal pain at the time of my evaluation. There was no reproducible CVA tenderness on evaluation. The patient denied a history of heroin her opiate use but had prior urine drug screen that were positive for opiates. 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 She has been hospitalized for hyperosmolar hyperglycemic diabetic syndrome and DKA in August 2019 and November 2019. Last hemoglobin A1c was greater than 14 in November 2019 and greater than 14 this hospitalization Surgical History Surgical History (Updated 01/23/20 @ 08:28 by Krystina Pedro DO) H/O LEEP History of laparotomy For an ectopic of the left fallopian tube Hx of cholecystectomy Social History Social History (Updated 01/23/20 @ 08:30 by Krystina Pedro DO) Social History: History of IV drug abuse. Her mother is her surrogate decision maker. Smoking packs per day: 0.5 Smoking cigarettes per day: 10.0 Years smoked: 16 Smoking pack-years: 8.00 Smoking status: Current every day smoker Tobacco type: cigarettes Alcohol intake: unknown Substance use: current Substance use type: marijuana and methamphetamine Last use: 01/18/20, patient has also used heroin in the past. Living arrangements: with family Additional living arrangements comments: She lives with her mother in [place]. She has 3 sons but they do not live with her. Occupation/Education: unemployed Gender identity (if verbalized by the patient): Female Spiritual care concerns: No Agree to blood products: Yes Meds Home Medications and Allergies Home Medications Medication Instructions Recorded Confirmed Type gabapentin 600 mg PO TID 08/25/19 01/23/20 History ibuprofen 800 mg PO Q6H PRN 08/25/19 01/23/20 History insulin glargine [Lantus Solostar 30 unit SUBCUT BID 08/25/19 01/23/20 History U-100 Insulin] insulin lispro See Rx Instructions .ROUTE .COMPLEX 08/25/19 01/23/20 History Allergies Allergy/AdvReac Type Severity Reaction Status Date / Time No Known
[2020-01-23] MEDS: KCL 20 MEQ/D5/0.45% SOD CHL 1,000 ML 150 ML IV CONT ×2 (05:44→13:16)
[2020-01-23 05:57] LABS: Glucose Point of Care 247 (65-105)
[2020-01-23] MEDS: INSULIN HUMAN REGULAR (*BKC) 100 UNITS in SODIUM CHLORIDE 0.9% IV 99 ML 9 UNITS IV CONT (06:24)
[2020-01-23 06:33] LABS: Glucose Point of Care 189 (65-105)
[2020-01-23 07:08] LABS: Blood Urea Nitrogen 19 mg/dL (7-17); Calcium 8.6 mg/dL (8.4-10.2); Carbon Dioxide 15 mmol/L (22-30); Chloride 109 mmol/L (98-107); Estimated CRCL calculation 119 ml/min; Estimated Glomerular Filt Rate > 60; Glucose 196 mg/dL (65-105); Potassium 3.4 mmol/L (3.4-5.0); Sodium 134 mmol/L (137-145)
[2020-01-23 07:15] LABS: Basophils Absolute Auto 0.1 K/mm3 (0.0-0.1); Basophils Percent Auto 0.6 % (0.2-1.2); Eosinophils Percent Auto 0.2 % (0-4.4); Hematocrit 39.3 % (37.0-47.0); Hemoglobin 13.6 g/dL (12.0-15.0); Immature Granulocyte Absolute 0.14 K/mm3 (0.00-0.031); Immature Granulocyte Percent A 0.9 % (0-0.5); Lymphocytes Absolute Auto 3.41 K/mm3 (0.9-3.2); Lymphocytes Percent Auto 21.3 % (18.3-44.2); Mean Corpuscular HGB Conc 34.6 g/dl (32-36); Mean Corpuscular Volume 89.5 fl (80-100); Mean Platelet Volume 9.4 fl (7.4-10.4); Monocytes Absolute Auto 1.7 K/mm3 (0.1-0.6); Monocytes Percent Auto 10.4 % (2.6-8.5); Neutrophils Absolute Auto 10.7 K/mm3 (1.3-6.7); Neutrophils Percent Auto 66.6 % (45.5-73.1); Platelet Count Result 295 k/mm3 (150-375); Red Blood Count 4.39 M/mm3 (4.2-5.4); Red Cell Distribution Width 12.4 % (11.5-14.5)
[2020-01-23 07:35] LABS: Glucose Point of Care 176 (65-105)
--- NOTE | 2020-01-23 08:30 | WPDURCON ---
Assessment and Plan Assessment and plan (1) Pyelonephritis: Code(s): N12 - Tubulo-interstitial nephritis, not specified as acute or chronic Status: Acute (2) DKA (diabetic ketoacidoses): Qualifiers: Diabetes mellitus complication detail: without coma Diabetes mellitus type: type 1 Qualified Code(s): E10.10 - Type 1 diabetes mellitus with ketoacidosis without coma Code(s): E11.10 - Type 2 diabetes mellitus with ketoacidosis without coma Status: Acute (3) Renal abscess: Code(s): N15.1 - Renal and perinephric abscess Status: Acute Additional Plan From a perspective, there is nothing more to do except treat with antibiotics (2 weeks) There is no evidence of a drainable collection in the kidney Urology Consult Note HPI Date Seen: 01/23/20 Requesting Physician: Krystina Pedro DO Primary Care Provider: UNKNOWN,DOCTOR Consult Narrative Narrative: Madai Jackson is a 34 year old female presented to ER in diabetic ketoacidosis. Patient is a noncompliant patient that has been admitted a couple of times of the past 5 months with DKA. Blood work revealed an elevated WBC of 24. CT noted a left upper pole renal phlegmon (~3cm). No sign of obstruction. Review of Systems Review of Systems: Narrative: Pt is a poor historian. PMFSH Past Medical History Medical History Ankle fracture, right Anxiety Asthma Bipolar disorder Bronchitis Depression Diabetic peripheral neuropathy Ectopic HLD (hyperlipidemia) HPV (human papilloma virus) infection Diagnosed 2016 with history of LEEP Methamphetamine abuse PCOS (polycystic ovarian syndrome) Pulmonary embolism December 2018 with hypercoagulable workup indicating 1 copy of the MTHFR DNA mutation Schizophrenia Type 1 diabetes mellitus Diagnosed in the last several years. She has been hospitalized for hyperosmolar hyperglycemic diabetic syndrome and DKA in August 2019 and November 2019. Last hemoglobin A1c was greater than 14 in November 2019 and greater than 14 this hospitalization Surgical History Surgical History H/O LEEP History of laparotomy For an ectopic of the left fallopian tube Hx of cholecystectomy Family History Family History Grandparent Diabetes mellitus Acute myocardial infarction Hypertension Other Congestive heart failure Social History Social History Social History: History of IV drug abuse. Her mother is her surrogate decision maker. Smoking packs per day: 0.5 Smoking cigarettes per day: 10.0 Years smoked: 16 Smoking pack-years: 8.00 Smoking status: Current every day smoker Tobacco type: cigarettes Alcohol intake: unknown Substance use: current Substance use type: marijuana and methamphetamine Last use: 01/18/20, patient has also used heroin in the past. Living arrangements: with family Additional living arrangements comments: She lives with her mother in [place]. She has 3 sons but they do not live with her. Occupation/Education: unemployed Gender identity (if verbalized by the patient): Female Spiritual care concerns: No Agree to blood products: Yes Meds Home Medications and Allergies Home Medications Medication Instructions Recorded Confirmed Type gabapentin 600 mg PO TID 08/25/19 01/23/20 History ibuprofen 800 mg PO Q6H PRN 08/25/19 01/23/20 History insulin glargine [Lantus Solostar 30 unit SUBCUT BID 08/25/19 01/23/20 History U-100 Insulin] insulin lispro See Rx Instructions .ROUTE .COMPLEX 08/25/19 01/23/20 History Allergies Allergy/AdvReac Type Severity Reaction Status Date / Time No Known Allergies Allergy Verified 11/10/19 19:01 Vital Signs Vital Signs - 24 h
[2020-01-23 08:31] LABS: Glucose Point of Care 154 (65-105)
--- NOTE | 2020-01-23 09:15 | WPDCNINT ---
Assessment and Plan Assessment and plan (1) Severe sepsis: Code(s): A41.9 - Sepsis, unspecified organism; R65.20 - Severe sepsis without septic shock Status: Acute Assessment and Plan: Likely secondary to urinary tract infection and left pyelonephritis. Continue antibiotics and IV fluid resuscitation. Follow cultures. Continue to monitor hemodynamics closely. (2) Pyelonephritis: Code(s): N12 - Tubulo-interstitial nephritis, not specified as acute or chronic Status: Acute Assessment and Plan: Continue antibiotics. Follow cultures. Urology Service recommendations appreciated. Conservative management for now as there is no drainable abscess. No evidence of obstruction. (3) DKA (diabetic ketoacidoses): Qualifiers: Diabetes mellitus complication detail: without coma Diabetes mellitus type: type 1 Qualified Code(s): E10.10 - Type 1 diabetes mellitus with ketoacidosis without coma Code(s): E11.10 - Type 2 diabetes mellitus with ketoacidosis without coma Status: Acute Assessment and Plan: Continue IV fluid resuscitation. Switch fluid to D5 half-normal saline once fingerstick sugar is down to 250. Continue insulin drip as per protocol. Check BMP every 4 hours. Next BMP will be checked around noon time. I will try beta hydroxybutyric acid with that BMP. Fingerstick sugars will be checked every 1 hour. Monitor electrolytes and replace as appropriate. Transition to basal bolus insulin once anion gap has closed. We will keep her NPO for now. (4) Type 1 diabetes mellitus: Qualifiers: Diabetes mellitus complication detail: with unspecified neuropathy Diabetes mellitus complication status: with neurologic complications Qualified Code(s): E10.40 - Type 1 diabetes mellitus with diabetic neuropathy, unspecified Code(s): E10.9 - Type 1 diabetes mellitus without complications Status: Acute Assessment and Plan: She has history of noncompliance and did mention about not taking any insulin for the last 3 days. She is supposed to be on Lantus 30 units subcutaneously twice a day along with insulin sliding scale. Resume her home insulin regimen after anion gap has closed. (5) DVT prophylaxis: Code(s): Z29.9 - Encounter for prophylactic measures, unspecified Status: Acute Assessment and Plan: Continue Lovenox. she has a history of PE in the past and hypercoagulable workup in December 2018 showed 1 copy of MTHFR DNA mutation. Additional Plan Critical care time spent more than 34 minutes Due to a high probability of clinically significant, life threatening deterioration, the patient required my highest level of preparedness to intervene emergently and I personally spent this critical care time directly and personally managing the patient. This critical care time included obtaining a history; examining the patient; pulse oximetry; ordering and review of studies; arranging urgent treatment with development of a management plan; evaluation of patient's response to treatment; frequent reassessment; and discussions with other providers. It was exclusive of separately billable procedures and treating other patients and teaching time. Please see Assessment and Plan section and the rest of the note for further information on patient assessment and treatment. [facility] Consult Note Consult date: 01/23/20 Time Seen: 11:16 HPI: Madai Jackson is a 34 year old female With past medical history of polysubstance abuse, insulin dependent diabetes mellitus, bipolar disorder, schizophrenia, hyperlipidemia who has been admitted multiple times with DKA because of noncompliance issue. She has a history of signing out AMA as well. She came into the emergency department with abdominal pain nausea and vomiting. She was not feeling well. She has mentioned that she has not taking her insulin for
[2020-01-23 09:32] LABS: Glucose Point of Care 121 (65-105)
--- NOTE | 2020-01-23 09:45 | PM.IMPN ---
Progress Note: A&P Assessment and Plan (1) DKA (diabetic ketoacidoses): Qualifiers: Diabetes mellitus complication detail: without coma Diabetes mellitus type: type 1 Qualified Code(s): E10.10 - Type 1 diabetes mellitus with ketoacidosis without coma Code(s): E11.10 - Type 2 diabetes mellitus with ketoacidosis without coma Status: Acute Assessment and Plan: Continue insulin drip until anion gap closes (2) Severe sepsis: Code(s): A41.9 - Sepsis, unspecified organism; R65.20 - Severe sepsis without septic shock Status: Acute Assessment and Plan: Due to left pyelonephritis with possible perinephric abscess. Antibiotic therapy with Flagyl and Rocephin. Blood cultures and urine cultures are pending. Repeat lactic acid level has improved. (3) Pyelonephritis: Code(s): N12 - Tubulo-interstitial nephritis, not specified as acute or chronic Status: Acute Assessment and Plan: Continue Rocephin and Flagyl day 1 Blood cultures and urine cultures are pending. Subjective Date/time seen: 01/23/20 09:45 Interval history: 34 y/o type 1 diabetic admitted with DKA, UTI. 01/22 Refuses to interact. Review of Systems Review of Systems: ROS unobtainable: Yes unobtainable due to mental status Exam Narrative: Exam Narrative: HEENT: Lips moist and pink NECK: No JVD CHEST: Clear to auscultation. Normal effort. HEART: NL S1/S2, regular, no murmur ABDOMEN: BS+, soft, nontender, no mass, no bruits EXTREMITIES: No cyanosis, edema, or clubbing NEUROLOGIC: CN intact and symmetric to inspection. MUSCULOSKELETAL: Tone and strength symmetric. PSYCH: Drowsy. Refuses conversation. Objective Data Vital Signs Vital Signs: Vital Signs - 24 hr 01/22/20 20:13 01/22/20 20:31 01/22/20 20:46 Temperature 98.3 F Pulse Rate 96 97 97 Respiratory Rate 28 H 14 27 H Blood Pressure 126/84 116/96 H 115/88 Pulse Oximetry 99 01/22/20 22:06 01/22/20 23:05 01/22/20 23:16 Temperature Pulse Rate 95 110 H 108 H Respiratory Rate 20 13 15 Blood Pressure 142/78 H 111/66 99/33 L Pulse Oximetry 100 100 01/22/20 23:23 01/22/20 23:30 01/22/20 23:46 Temperature Pulse Rate 108 H 108 H 106 H Respiratory Rate 17 14 16 Blood Pressure 110/69 111/77 102/80 Pulse Oximetry 100 100 01/23/20 01:15 01/23/20 01:30 01/23/20 02:05 Temperature 98.5 F Pulse Rate 101 H 112 H 92 Respiratory Rate 15 18 15 Blood Pressure 127/104 H 115/90 118/72 Pulse Oximetry 100 100 01/23/20 04:00 01/23/20 05:48 01/23/20 05:49 Temperature Pulse Rate 97 88 89 Respiratory Rate 16 20 Blood Pressure 129/79 100/64 Pulse Oximetry 99 100 01/23/20 07:52 01/23/20 08:00 Temperature 98.2 F Pulse Rate 92 94 Respiratory Rate 16 Blood Pressure 115/83 Pulse Oximetry 100 Intake/Output Intake/Output: Intake & Output 01/20/20 01/21/20 01/22/20 01/23/20 23:59 23:59 23:59 23:59 Intake Total 2049 707 Balance 2049 707 Meds/Results Medications: Active Medications Generic Name Dose Route Start Last Admin Trade Name Freq PRN Reason Stop Dose Admin Dextrose 12.5 gm 01/22/20 22:35 Dextrose 50% Syringe IV PUSH PRN PRN Hypoglycemia Protocol Enoxaparin Sodium 40 mg 01/23/20 09:00 01/23/20 09:26 Lovenox SUB-Q Not Given DAILY MAXI Glucagon 1 mg 01/22/20 22:35 Glucagon For Inj IM PRN PRN Hypoglycemia Protocol Glucose 15 gm 01/22/20 22:35 Glutose 15 PO PRN PRN Hypoglycemia Protocol Sodium Chloride 1,000 mls @ 150 mls/hr 01/22/20 22:35 01/23/20 05:44 Normal Saline Iv IV CONT 0 mls/hr .Q6H40M MAXI Infusion Potassium Chloride/Dextrose/Sod Cl 1,000 mls @ 150 mls/hr 01/22/20 22:35 01/23/20 08:00 Kcl 20 Meq/D5/0.45% Sod Chl IV CONT 150 mls/hr .Q6H40M MAXI Infusion Insulin Aspart 100 units/ 100 mls @ 6.6 mls/hr 01/22/20 22:35 01/23/20 09:35 Sodium Chloride IV CONT 4.3 u
[2020-01-23 10:38] LABS: Glucose Point of Care 116 (65-105)
[2020-01-23 11:31] LABS: Glucose Point of Care 122 (65-105)
[2020-01-23 11:45] LABS: Amphetamine Screen Urine Negative (Negative); Barbiturate Screen Urine Negative (Negative); Benzodiazepines Screen Urine Negative (Negative); Cannabinoid Screen Urine Positive (Negative); Cocaine Screen Urine Negative (Negative); Methadone Screen Urine Negative (Negative); Opiate Screen Urine Positive (Negative); Phencyclidine Screen Urine Negative (Negative)
[2020-01-23 12:49] LABS: Glucose Point of Care 127 (65-105)
[2020-01-23 12:50] LABS: Blood Urea Nitrogen 18 mg/dL (7-17); Calcium 8.6 mg/dL (8.4-10.2); Carbon Dioxide 16 mmol/L (22-30); Chloride 110 mmol/L (98-107); Estimated CRCL calculation 119 ml/min; Estimated Glomerular Filt Rate > 60; Glucose 136 mg/dL (65-105); Potassium 3.8 mmol/L (3.4-5.0); Sodium 135 mmol/L (137-145)
[2020-01-23 12:55] LABS: Beta-Hydroxybutyrate/Acetoacetate 0.26 mmol/L (0.02-0.27)
[2020-01-23 13:34] LABS: Glucose Point of Care 124 (65-105)
[2020-01-23 14:26] LABS: Glucose Point of Care 115 (65-105)
[2020-01-23 15:40] LABS: Glucose Point of Care 107 (65-105)
[2020-01-23 16:01] LABS: Blood Urea Nitrogen 17 mg/dL (7-17); Calcium 8.4 mg/dL (8.4-10.2); Carbon Dioxide 17 mmol/L (22-30); Chloride 109 mmol/L (98-107); Estimated CRCL calculation 119 ml/min; Estimated Glomerular Filt Rate > 60; Glucose 118 mg/dL (65-105); Potassium 3.6 mmol/L (3.4-5.0); Sodium 133 mmol/L (137-145)
[2020-01-23 16:05] LABS: Beta-Hydroxybutyrate/Acetoacetate 0.11 mmol/L (0.02-0.27)
--- NOTE | 2020-01-23 16:21 | PM.DS ---
DS: Diagnosis Admitting Diagnosis Admitting Diagnosis: Type 1 diabetes mellitus with ketoacidosis without coma Discharge Diagnosis (1) DKA (diabetic ketoacidoses): Qualifiers: Diabetes mellitus complication detail: without coma Diabetes mellitus type: type 1 Qualified Code(s): E10.10 - Type 1 diabetes mellitus with ketoacidosis without coma Code(s): E11.10 - Type 2 diabetes mellitus with ketoacidosis without coma Status: Acute Assessment and Plan: Patient was in full position of her faculties and refused to continue insulin drip She signed out against medical advice (2) Severe sepsis: Code(s): A41.9 - Sepsis, unspecified organism; R65.20 - Severe sepsis without septic shock Status: Acute Assessment and Plan: Due to left pyelonephritis with possible perinephric abscess. Antibiotic therapy with Flagyl and Rocephin. Blood cultures and urine cultures are pending. Repeat lactic acid level improved. (3) Pyelonephritis: Code(s): N12 - Tubulo-interstitial nephritis, not specified as acute or chronic Status: Acute Assessment and Plan: Continued Rocephin and Flagyl day 1 until she signed out against medical advice Blood cultures and urine cultures are pending. DS: Summary Hospital Course Reason for hospitalization: Diabetic ketoacidosis with acute pyelonephritis Hospital Course: Patient presented in diabetic ketoacidosis and abnormal urinalysis. Imaging suggested pyelonephritis on the left with possible perinephric abscess. Treated with insulin drip IV fluids ceftriaxone and metronidazole. As is her custom when she began feeling better she demanded to leave the hospital and signed out against medical advice. By the time of discharge her anion gap had closed to 7. Blood sugar was 118. Her A1c was greater than 14%. Time Spent with Patient Time attestation: Total time spent providing and/or coordinating discharge services: Exam Narrative: Exam Narrative: HEENT: Lips moist and pink NECK: No JVD CHEST: Clear to auscultation. Normal effort. HEART: NL S1/S2, regular, no murmur ABDOMEN: BS+, soft, nontender, no mass, no bruits EXTREMITIES: No cyanosis, edema, or clubbing NEUROLOGIC: CN intact and symmetric to inspection. MUSCULOSKELETAL: Tone and strength symmetric. PSYCH: Drowsy. Refuses conversation. DS: Data Data Completed and Pending Labs on day of discharge: Labs from last 24 hours 0401/23/20 01/23/20 15:38 15:36 15:36 WBC RBC Hgb Hct MCV MCH MCHC RDW Plt Count MPV Immature Gran % (Auto) Neut % (Auto) Lymph % (Auto) [place] % (Auto) Eos % (Auto) Baso % (Auto) Lymph # (Auto) [place] # (Auto) Eos # (Auto) Baso # (Auto) Abs Immat Gran (auto) Absolute Neuts (auto) Absolute Nucleated RBC Nucleated RBC % Puncture Site ABG pH ABG pCO2 ABG pO2 ABG PO2/FiO2 Ratio ABG HCO3 ABG O2 Saturation ABG O2 Content ABG Base Excess A-a Gradient Oxyhemoglobin Carboxyhemoglobin Methemoglobin Reduced Hemoglobin Total Hemoglobin O2 Delivery Device O2 Liters/Min FiO2 Sodium 133 L Potassium 3.6 Chloride 109 H Carbon Dioxide 17 L BUN 17 Creatinine 0.50 L Estim Creat Clear Calc 119 Estimated GFR > 60 Glucose 118 H POC Capillary Glucose 107 Hemoglobin A1c Lactic Acid Calcium 8.4 Phosphorus Magnesium Total Bilirubin AST ALT Alkaline Phosphatase Total Protein Albumin Lipase Beta-Hydroxybutyrate/Acetoacetate 0.11 Urine Color Urine Appearance Urine pH Ur Specific [place] Urine Protein Urine Glucose (UA) Urine Ketones Ur Blood (Man) Urine Nitrate Urine Bilirubin Urine Urobilinogen Leukocyte Esterase Rfl Urine RBC Urine WBC Ur Squamous Epith Cells Urine Bacteria Hyaline Casts Urine
--- NOTE | 2020-01-23 16:22 | PC.NURSE ---
1355 Patient very upset and requesting to sign out. Education and calming techniques attempted. Patient yelling at mother to come pick her up. Patient requesting to sign out against medical advice. Education provided, IVs discontinued and patient taken to front door in wheelchair. No acute distress noted.
== END 2020-01-23 15:55 | disposition left against medical advice (07) | DRG 720 ==
LOC: ANHED 23:50 → ANHICU 01-23 03:13
PROVIDERS: Internal Medicine Critical Care Medicine; Admitting Provider Internal Medicine; Emergency Provider General Practice; Visit Provider Internal Medicine
DX: A41.9 Sepsis, unspecified organism (principal); E10.10 Type 1 diabetes mellitus with ketoacidosis without coma; Z79.4 Long term (current) use of insulin; F11.10 Opioid abuse, uncomplicated; F41.8 Other specified anxiety disorders; J45.909 Unspecified asthma, uncomplicated; E10.42 Type 1 diabetes mellitus with diabetic polyneuropathy; E78.5 Hyperlipidemia, unspecified; E28.2 Polycystic ovarian syndrome; Z86.711 Personal history of pulmonary embolism; F20.9 Schizophrenia, unspecified; F17.210 Nicotine dependence, cigarettes, uncomplicated; R65.20 Severe sepsis without septic shock; N10 Acute pyelonephritis; E86.0 Dehydration; N15.1 Renal and perinephric abscess; Z91.19 Patient's noncompliance with other medical treatment and regimen; F31.9 Bipolar disorder, unspecified
CPT/HCPCS: 36415; 36600; 70450; 71045; 74177; 80048; 80053; 80307; 81001; 81025; 82010; 82375; 82805; 82947; 83036; 83050; 83605; 83690; 83735; 84100; 85025; 87040; 87077; 87086; 87088; 87186; 93005; 96361; 96365; 96375; 96376; 99285; J0696; J1815; J2765; J3480; J7030; Q9967

== ENCOUNTER 2020-04-15 22:23 | Inpatient (IN) | payer OTHER, SELFPAY ==
--- NOTE | ~2020-04-15 | CT_ITS ---
EXAMINATION: CT abdomen pelvis wo con DATE: 04/16/2020 13:03 INDICATION: Nausea. TECHNIQUE: Computed tomography (CT) of the abdomen and pelvis was performed without intravenous contr ast. Automated exposure control and iterative reconstruction technique were employed. The dose-length product was 217.19 mGy-cm. COMPARISON: CT abdomen and pelvis 01/22/2020 FINDINGS: The visualized portions of the lung bases are clear without pneumonia or pleural effusion. The heart size is normal. No pericardial effusion. The liver is normal. There are changes of cholecys tectomy. The spleen, pancreas, adrenal glands, and right kidney are normal. There is cortical thinnin g of upper pole of left kidney. There is no urolithiasis. There are no dilated loops of bowel. The ap pendix is normal. There are no pathologically enlarged lymph nodes. There is no free intraperitoneal fluid. There is mild thoracolumbar spondylosis. IMPRESSION: 1. No etiology for the patient's symptoms. Reviewed, dictated and finalized at location A.
--- NOTE | ~2020-04-15 | XR_ITS ---
EXAMINATION: XR chest 1V portable DATE: 04/16/2020 01:08 INDICATION: Diabetic ketoacidosis. TECHNIQUE: A single frontal view of the chest was obtained. COMPARISON: Chest single view 01/22/2020, CT abdomen and pelvis 01/22/2020 FINDINGS: The chest demonstrates clear lungs without pneumonia, pleural effusion, or pneumothorax. Th e heart size is normal. IMPRESSION: 1. No acute cardiopulmonary disease. Reviewed, dictated and finalized at location A.
[2020-04-15 22:26] VITALS: BP 112/74; PULSE 126; RESP 26; TEMP 36.4; O2SAT 98
[2020-04-15 22:30] LABS: Glucose Point of Care > 500 (65-105)
[2020-04-15 22:31] VITALS: BP 134/90; PULSE 116; RESP 18; O2SAT 98
[2020-04-15 22:51] LABS: Basophils Absolute Auto 0.2 K/mm3 (0.0-0.1); Basophils Percent Auto 0.7 % (0.2-1.2); Eosinophils Percent Auto 0.1 % (0-4.4); Hematocrit 51.3 % (37.0-47.0); Immature Granulocyte Absolute 0.28 K/mm3 (0.00-0.031); Immature Granulocyte Percent A 0.9 % (0-0.5); Lymphocytes Absolute Auto 5.09 K/mm3 (0.9-3.2); Lymphocytes Percent Auto 17.2 % (18.3-44.2); Mean Corpuscular HGB Conc 33.1 g/dl (32-36); Mean Corpuscular Hemoglobin 30.9 pg (26-34); Mean Corpuscular Volume 93.1 fl (80-100); Mean Platelet Volume 10.5 fl (7.4-10.4); Monocytes Absolute Auto 1.4 K/mm3 (0.1-0.6); Monocytes Percent Auto 4.7 % (2.6-8.5); Neutrophils Absolute Auto 22.7 K/mm3 (1.3-6.7); Neutrophils Percent Auto 76.4 % (45.5-73.1); Platelet Count Result 389 k/mm3 (150-375); Red Blood Count 5.51 M/mm3 (4.2-5.4); Red Cell Distribution Width 12.8 % (11.5-14.5); White Blood Count 29.7 K/mm3 (4.5-10.0)
[2020-04-15 23:33] LABS: Alanine Aminotransferase 36 U/L (4-35); Alkaline Phosphatase 204 U/L (38-126); Aspartate Amino Transferase 22 U/L (14-36); Bilirubin,Total 0.4 mg/dL (0.2-1.3); Blood Urea Nitrogen 25 mg/dL (7-17); Calcium 9.4 mg/dL (8.4-10.2); Carbon Dioxide < 5 mmol/L (22-30); Chloride 90 mmol/L (98-107); Estimated Glomerular Filt Rate 47; Glucose 627 mg/dL (65-105); Magnesium 1.8 mg/dL (1.6-2.3); Phosphorus 6.9 mg/dL (2.5-4.5); Potassium 4.9 mmol/L (3.4-5.0); Sodium 130 mmol/L (137-145)
[2020-04-16] VITALS (10 sets, daily range): BP systolic 93–139; BP diastolic 52–91; PULSE 81–136; RESP 14–18; TEMP 36.2–36.8; O2SAT 97–100; BMI 18.3
[2020-04-16] MEDS: SODIUM CHLORIDE 0.9% IV 1,000 ML 999 ML IV CONT ×2 (00:45→00:51)
[2020-04-16] MEDS: INSULIN HUMAN REGULAR (*BKC) 100 UNITS/ML IV PUSH (00:52)
--- NOTE | 2020-04-16 01:06 | ED.RECABL ---
HPI - Recheck/Abnormal Lab/Rx General Chief Complaint: Recheck/Abnormal Lab/Rx Stated Complaint: BEEN SLEEPING FOR A COUPLE OF DAYS Time Seen by Provider: 04/16/20 00:31 History of Present Illness HPI narrative: Patient presents with her mother for feeling sick. In particular she complains of headache and back pain. She said the back pain is 10 out of 10 and the headache is 8 out of 10. Her mother reports that she has been sleeping for days. She is a type I diabetic and has had frequent DKA. She is currently in DKA. complaint: abnormal lab Initial visit (ago): day(s) Related Data Home Medications Medication Instructions Recorded Confirmed gabapentin 600 mg PO TID 08/25/19 01/23/20 ibuprofen 800 mg PO Q6H PRN 08/25/19 01/23/20 insulin glargine [Lantus Solostar 30 unit SUBCUT BID 08/25/19 01/23/20 U-100 Insulin] insulin lispro See Rx Instructions .ROUTE .COMPLEX 08/25/19 01/23/20 Allergies Allergy/AdvReac Type Severity Reaction Status Date / Time No Known Allergies Allergy Verified 11/10/19 19:01 Review of Systems Review of Systems: Narrative: Patient is too sick to give much information in the history. She vomited here. She has back pain and headache. [facility] Past Medical History Medical History Ankle fracture, right Anxiety Asthma Bipolar disorder Bronchitis Depression Diabetic peripheral neuropathy Ectopic HLD (hyperlipidemia) HPV (human papilloma virus) infection Diagnosed 2016 with history of LEEP Methamphetamine abuse PCOS (polycystic ovarian syndrome) Pulmonary embolism December 2018 with hypercoagulable workup indicating 1 copy of the MTHFR DNA mutation Schizophrenia Type 1 diabetes mellitus Diagnosed in the last several years. She has been hospitalized for hyperosmolar hyperglycemic diabetic syndrome and DKA in August 2019 and November 2019. Last hemoglobin A1c was greater than 14 in November 2019 and greater than 14 this hospitalization Surgical History Surgical History H/O LEEP History of laparotomy For an ectopic of the left fallopian tube Hx of cholecystectomy Social History Social History Social History: History of IV drug abuse. Her mother is her surrogate decision maker. Smoking packs per day: 0.5 Smoking cigarettes per day: 10.0 Years smoked: 16 Smoking pack-years: 8.00 Smoking status: Current every day smoker Tobacco type: cigarettes Alcohol intake: unknown Substance use: current Substance use type: marijuana and methamphetamine Last use: 01/18/20, patient has also used heroin in the past. Additional living arrangements comments: She lives with her mother in [place]. She has 3 sons but they do not live with her. Gender identity (if verbalized by the patient): Female Spiritual care concerns: No Agree to blood products: Yes Exam Narrative: Exam Narrative: GENERAL: Cachectic, dehydrated, cyanosis on the skin, moment in significant distress. HEAD: Normocephalic, atraumatic. EYES: PERRLA and EOMI. ENT: Nares clear, no rhinorrhea or epistaxis. Mucous membranes moist. NECK: Supple. CHEST: Clear to auscultation. No respiratory distress. HEART: Regular rate and rhythm. No murmur heard. Normal peripheral pulses. ABDOMEN: Soft, nontender, nondistended, normal active bowel sounds. EXTREMITIES: Normal range of motion. No edema. SKIN: Warm, dry NEURO: No focal deficits. Alert and oriented x3. . Const: General: alert Course Consultations Consultation #1: Dr. Herman said she would write the orders for the DKA if I would call Dr. Albarado for the admission to the ICU. Date: 04/16/20 Time: 01:09 Consultation #2: Call Dr. Singer for admission to the ICU. Date: 04/16/20 Time: 01:09 Vital Signs Vital signs: Vital Signs Temperature 97.6 F 04/15/20 22:2
[2020-04-16 01:37] LABS: Glucose Point of Care > 500 (65-105)
[2020-04-16 01:54] LABS: Add Urine Microscopic? YES; Appearance Urine Cloudy (Clear); Bacteria Urine Trace /hpf; Bilirubin Urine Negative (Negative); Blood Urine 1+ (Negative); Color Urine Yellow (Yellow); Glucose Urine UA 3+ mg/dL (Negative); Ketones Urine 2+ mg/dL (Negative); Leukocyte Esterase Ur 3+ LEU/UL (Negative); Mucus Urine Rare /lpf; Nitrate Urine Negative (Negative); Protein Urine 2+ mg/dL (Negative); RBC Urine 21-50 /hpf (0-2); Squamous Epithelial Cell Urine Occasional /hpf (Few); Urobilinogen Urine Negative mg/dL (<2.0); WBC Urine >75 /hpf
[2020-04-16 02:08] LABS: Magnesium 1.7 mg/dL (1.6-2.3); Phosphorus 5.8 mg/dL (2.5-4.5)
--- NOTE | 2020-04-16 02:48 | PC.NURSE ---
Lab called x2 for BMP result, will check.
[2020-04-16 02:53] LABS: Blood Urea Nitrogen 25 mg/dL (7-17); Calcium 8.6 mg/dL (8.4-10.2); Carbon Dioxide 6 mmol/L (22-30); Chloride 98 mmol/L (98-107); Estimated Glomerular Filt Rate 52; Glucose 565 mg/dL (65-105); Potassium 4.2 mmol/L (3.4-5.0); Sodium 132 mmol/L (137-145)
[2020-04-16] MEDS: INSULIN HUMAN REGULAR (*BKC) 100 UNITS in SODIUM CHLORIDE 0.9% IV 99 ML 10.1 UNITS IV CONT (02:58)
[2020-04-16] MEDS: SODIUM CHLORIDE 0.9% IV 1,000 ML 150 ML IV CONT (03:04)
[2020-04-16 03:35] LABS: Glucose Point of Care 479 (65-105)
--- NOTE | 2020-04-16 04:02 | PM.IMHP ---
H&P: HPI History of Present Illness Chief complaint: Weakness and high blood sugars Narrative: Date and time of patient contact: 04/16/2020 at 3:35 a.m. Madai Jackson is a 34 year old female with a past medical history of poorly controlled type 1 diabetes mellitus in multiple admissions for DKA who presented to the ER with weakness and fatigue for the last 5 days. She claims to continue taking her Lantus and short-acting insulin over the last 5 days. She states that she has not had anything to eat and very little to drink over that time. She started having nausea and vomiting on morning of the . She denies any hematemesis or coffee-ground emesis. She reports that her mouth feels sore in that she has had white plaques in her mouth. She denies any dysphagia. She denies any fevers or chills while at home. She reports that since she has arrived to the hospital she has been cold. She denies any dysuria or hematuria. She has had increased urinary frequency since her sugars have been high. Her diabetes is managed by an carriage feeder in [place]. She states that she received an insulin pump 2 weeks ago but has never started using it. She denies any cough or congestion. She has not had any recent ill contacts. The patient had been admitted to hospital in January due to pyelonephritis with possible yehuda nephric abscess and DKA. The patient had left against medical advice 1 day into her hospitalization. She has a history of methamphetamine abuse but did not mention recent use at the time of my evaluation. Review of Systems Review of Systems: Narrative: 12 systems were reviewed with pertinent positives and negatives per HPI. Except as documented in the HPI, all other systems were reviewed and are negative. [facility] Family History Family History (Updated 04/16/20 @ 04:23 by Krystina Pedro DO) Grandparent Diabetes mellitus Acute myocardial infarction Hypertension CHF (congestive heart failure) Social History Social History Social History: History of IV drug abuse. Her mother is her surrogate decision maker. Smoking packs per day: 0.5 Smoking cigarettes per day: 10.0 Years smoked: 16 Smoking pack-years: 8.00 Smoking status: Current every day smoker Tobacco type: cigarettes Alcohol intake: unknown Substance use: current Substance use type: marijuana and methamphetamine Last use: 01/18/20, patient has also used heroin in the past. Additional living arrangements comments: She lives with her mother in [place]. She has 3 sons but they do not live with her. Gender identity (if verbalized by the patient): Female Spiritual care concerns: No Agree to blood products: Yes Meds Home Medications and Allergies Home Medications Medication Instructions Recorded Confirmed Type gabapentin 600 mg PO TID 08/25/19 04/16/20 History ibuprofen 800 mg PO Q6H PRN 08/25/19 04/16/20 History insulin glargine [Lantus Solostar 30 unit SUBCUT BID 08/25/19 04/16/20 History U-100 Insulin] insulin lispro See Rx Instructions .ROUTE .COMPLEX 08/25/19 04/16/20 History Allergies Allergy/AdvReac Type Severity Reaction Status Date / Time No Known Allergies Allergy Verified 11/10/19 19:01 Vital Signs Vital Signs - 24 hr 04/15/20 22:26 04/15/20 22:31 04/16/20 01:00 Temperature 97.6 F Pulse Rate 126 H 116 H 136 H Respiratory Rate 26 H 18 18 Blood Pressure 112/74 134/90 139/90 Pulse Oximetry 98 98 100 04/16/20 02:31 04/16/20 03:20 Temperature Pulse Rate 94 103 H Respiratory Rate 18 18 Blood Pressure 126/91 H 132/88 Pulse Oximetry 97 98 Exam Narrative: Exam Narrative: PHYSICAL EXAM: WEIGHT 53.3 kg BMI 18.4 General: Chronically ill-appearing, appears much older than stated age HEENT: Poor dentition, oral ulcerations, tongue is dry, head is normocephalic Neck: No JVD, no thyromegaly Respiratory: Mild tachyp
--- NOTE | 2020-04-16 04:26 | ADMGEN ---
This patient, Madai Jackson, was admitted to Intensive Care Unit-10 at 0315. Patient/family oriented to hospital policies and general routines including ID bracelet, bed and alarms, visiting hours, pain management, procedures, bathroom and other care routines, personal items, smoking policy, room service/diet, and visiting hours. Valuables list has been completed. Information on how to activate the Rapid Response Team has been discussed. Patient/Family are encouraged to report perceived risks to care and to ask questions if they do not understand what they are told or what they should do.
[2020-04-16 05:00] LABS: Glucose Point of Care 410 (65-105)
[2020-04-16 06:08] LABS: Glucose Point of Care 260 (65-105)
[2020-04-16 06:18] LABS: Hemoglobin 14.4 g/dL (12.0-15.0); Mean Corpuscular HGB Conc 34.3 g/dl (32-36); Mean Corpuscular Hemoglobin 30.5 pg (26-34); Mean Platelet Volume 9.9 fl (7.4-10.4); Platelet Count Result 290 k/mm3 (150-375); Red Blood Count 4.72 M/mm3 (4.2-5.4); Red Cell Distribution Width 12.3 % (11.5-14.5); White Blood Count 24.5 K/mm3 (4.5-10.0)
[2020-04-16 06:37] LABS: Blood Urea Nitrogen 22 mg/dL (7-17); Carbon Dioxide 10 mmol/L (22-30); Chloride 106 mmol/L (98-107); Estimated CRCL calculation 74 ml/min; Estimated Glomerular Filt Rate > 60; Glucose 279 mg/dL (65-105); Potassium 3.4 mmol/L (3.4-5.0); Sodium 134 mmol/L (137-145)
[2020-04-16 06:48] LABS: Glucose Point of Care 244 (65-105)
[2020-04-16] MEDS: KCL 20 MEQ/D5/0.45% SOD CHL 1,000 ML 150 ML IV CONT (06:53)
[2020-04-16 08:16] LABS: Glucose Point of Care 208 (65-105)
[2020-04-16 09:06] LABS: Glucose Point of Care 193 (65-105)
[2020-04-16] MEDS: ENOXAPARIN 40 MG/0.4 ML SYRINGE SUB-Q (09:17)
[2020-04-16] MEDS: NYSTATIN 100,000 UNITS/ML SUSP 5 ML ORAL.SUSP PO ×4 (09:17→19:57)
[2020-04-16 09:45] LABS: Amphetamine Screen Urine Negative (Negative); Barbiturate Screen Urine Negative (Negative); Benzodiazepines Screen Urine Negative (Negative); Cannabinoid Screen Urine Negative (Negative); Cocaine Screen Urine Negative (Negative); Methadone Screen Urine Negative (Negative); Opiate Screen Urine Negative (Negative); Phencyclidine Screen Urine Negative (Negative)
[2020-04-16 10:09] LABS: Glucose Point of Care 177 (65-105)
[2020-04-16 10:39] LABS: Blood Urea Nitrogen 20 mg/dL (7-17); Calcium 7.9 mg/dL (8.4-10.2); Carbon Dioxide 18 mmol/L (22-30); Chloride 105 mmol/L (98-107); Estimated CRCL calculation 96 ml/min; Estimated Glomerular Filt Rate > 60; Glucose 178 mg/dL (65-105); Potassium 3.8 mmol/L (3.4-5.0); Sodium 132 mmol/L (137-145)
--- NOTE | 2020-04-16 10:50 | WPDCNINT ---
Assessment and Plan Assessment and plan (1) DKA (diabetic ketoacidoses): Qualifiers: Diabetes mellitus complication detail: without coma Diabetes mellitus type: type 1 Qualified Code(s): E10.10 - Type 1 diabetes mellitus with ketoacidosis without coma Code(s): E11.10 - Type 2 diabetes mellitus with ketoacidosis without coma Status: Acute Assessment and Plan: IVF bolus and infusion Insulin infusion and Q1H glucose monitoring Serial labs Replace electrolytes as needed Will transition to SC insulin once AG is closed (2) UTI (urinary tract infection): Qualifiers: Hematuria presence: without hematuria Urinary tract infection type: site unspecified Qualified Code(s): N39.0 - Urinary tract infection, site not specified Code(s): N39.0 - Urinary tract infection, site not specified Status: Acute Assessment and Plan: IV fluids IV Rocephin. urine cultures and Blood cultures sent and pending. Patient had CT abdomen done in January which suggested possible abscess and mass. Patient left against medical advice at that time. I will repeat CT abdomen pelvis at this time to re-evaluate the mass. (3) Renal mass: Code(s): N28.89 - Other specified disorders of kidney and ureter Status: Acute Assessment and Plan: See above (4) Polycythemia: Code(s): D75.1 - Secondary polycythemia Status: Acute Assessment and Plan: Due to dehydration and profound volume depletion. Resolved with IV fluids (5) Thrush: Code(s): B37.0 - Candidal stomatitis Status: Acute Assessment and Plan: Nystatin ordered (6) IV drug abuse: Code(s): F19.10 - Other psychoactive substance abuse, uncomplicated Status: Acute Assessment and Plan: Patient admits using IV methamphetamine this year. She has thrush on her tongue. Will screen for HIV and hepatitis. Spoke to patient and she is agreeable for testing. Discussed with Dr. Figueroa Additional Plan Case discussed with Dr. Figueroa Will plan to transfer patient out of ICU once transition to subcutaneous insulin and hemodynamically stable Posting Specialist Consult Note Consult date: 04/16/20 Time Seen: 10:30 HPI: Madai Jackson is a 34 year old female of type 1 diabetes which is poorly controlled, multiple admissions with DKA and IV drug abuse history presented to ER last night with chief complaint of not feeling well for last 5 days. Patient is not very forthcoming with her history and was difficult obtaining information from her. She told me that she has not taken her insulin for last 5 days as she was not feeling well she did not give me any more details about her symptoms. She denied any nausea vomiting diarrhea abdominal pain. No fever cough or shortness of breath. Denies any dysuria hematuria or frequency no sick contacts. She does admit to having chronic back pain which is 05/16 from 'degenerative disease'. she also told me that she is hungry and would like to eat. Review of system was also positive headache 05/16 which is also not new as patient states she takes ibuprofen for that at home She admits to smoking half pack a day for last 15 years, frequent smoking marijuana and last IV methamphetamine use was within 6 months Review of Systems Review of Systems: All systems reviewed & are unremarkable except as noted in HPI and below (HPI) [facility] Past Medical History Medical History Ankle fracture, right Anxiety Asthma Bipolar disorder Bronchitis Depression Diabetic peripheral neuropathy Ectopic HLD (hyperlipidemia) HPV (human papilloma virus) infection Diagnosed 2016 with history of LEEP Methamphetamine abuse PCOS (polycystic ovarian syndrome) Pulmonary embolism December 2018 with hypercoagulable workup indicating 1 copy of the MTHFR DNA mutation Schizophrenia Type 1 diabetes mellitus Diagnosed in the last several ye
[2020-04-16 11:03] LABS: Glucose Point of Care 177 (65-105)
[2020-04-16] MEDS: INSULIN GLARGINE (*BKC) 100 UNITS/ML 30 UNITS SUB-Q (11:11)
[2020-04-16 11:55] LABS: Glucose Point of Care 157 (65-105)
[2020-04-16] MEDS: SODIUM CHLORIDE 0.9% IV 250 ML 75 ML IV CONT (12:23)
[2020-04-16 12:27] LABS: HIV 1/2 Ab P24 Ag Result Negative (Negative)
[2020-04-16 12:31] LABS: Hepatitis B Surface Antigen Negative (Negative)
[2020-04-16 12:36] LABS: Hepatitis B Core IgM Result Negative (Negative)
[2020-04-16 12:48] LABS: Hepatitis C Virus Antibody Negative (Negative)
[2020-04-16] MEDS: LIDOCAINE 5% PATCH 1 PATCH TRANSDERM (13:50)
[2020-04-16 14:11] LABS: Blood Urea Nitrogen 18 mg/dL (7-17); Calcium 7.6 mg/dL (8.4-10.2); Carbon Dioxide 16 mmol/L (22-30); Chloride 105 mmol/L (98-107); Estimated CRCL calculation 113 ml/min; Estimated Glomerular Filt Rate > 60; Glucose 342 mg/dL (65-105); Sodium 128 mmol/L (137-145)
[2020-04-16] MEDS: SODIUM CHLORIDE 0.9% IV 1,000 ML 75 ML IV CONT (15:00)
--- NOTE | 2020-04-16 15:06 | PC.NURSE ---
Patient transferred to [facility] at 1500, report given to Viktoriya KEENAN with all questions answered, all belongings sent with patient.
--- NOTE | 2020-04-16 15:10 | PC.NURSE ---
This patient, Madai Jackson, was received from ICU on 04/16/20 at 1510 . Personal belongings list checked and signed. Patient/family oriented to unit policies and routines. Report received from REE Bashir.
--- NOTE | 2020-04-16 15:33 | PM.IMPN ---
Progress Note: A&P Assessment and Plan (1) DKA (diabetic ketoacidoses): Qualifiers: Diabetes mellitus complication detail: without coma Diabetes mellitus type: type 1 Qualified Code(s): E10.10 - Type 1 diabetes mellitus with ketoacidosis without coma Code(s): E11.10 - Type 2 diabetes mellitus with ketoacidosis without coma Status: Acute Assessment and Plan: Patient has been admitted to the ICU. Map And Chart Mounter has been consulted. Patient has been placed on DKA protocol with titration of insulin drip, continued IV fluid hydration, serial labs and hourly Accu-Cheks while on insulin infusion Patient's home Lantus will be initiated once the patient's gap has closed and bicarb has normalized. 04/16/20 15:33 Patient is a 34-year-old female with history of type 1 diabetes history of uncontrolled several DKA and several admission presented emergency department with a complaint severe headache back pain nauseated and feels sick she was in DKA patient was started on insulin drip vigorously hydrated and transferred to ICU, today patient is seen legal director, her blood sugars are trending down her anion gap is closing, IV insulin is dc, Patient is switched over to sliding scale, patient is clinically stable, will transfer patient out of ICU and will continue on the medical, will have perinatal educator consult the pain further recommendation (2) Polycythemia: Code(s): D75.1 - Secondary polycythemia Status: Acute Assessment and Plan: Due to dehydration and profound volume depletion. Repeat CBC in a.m.. (3) UTI (urinary tract infection): Qualifiers: Hematuria presence: without hematuria Urinary tract infection type: site unspecified Qualified Code(s): N39.0 - Urinary tract infection, site not specified Code(s): N39.0 - Urinary tract infection, site not specified Status: Acute Assessment and Plan: Probable UTI. Patient was initiated on empiric antibiotic therapy with Rocephin. Await urine cultures. Blood cultures have been added. (4) Thrush: Code(s): B37.0 - Candidal stomatitis Status: Acute Assessment and Plan: Most likely secondary to uncontrolled diabetes, Nystatin Subjective Date/time seen: 04/16/20 15:33 Patient is a 34-year-old female with history of type 1 diabetes history of uncontrolled several DKA and several admission presented emergency department with a complaint severe headache back pain nauseated and feels sick she was in DKA patient was started on insulin drip vigorously hydrated and transferred to ICU, today patient is seen legal director, her blood sugars are trending down her anion gap is closing, IV insulin is dc, Patient is switched over to sliding scale, patient is clinically stable, will transfer patient out of ICU and will continue on the medical, will have perinatal educator consult the pain further recommendation Review of Systems Review of Systems: All systems reviewed & are unremarkable except as noted in HPI and below Exam Narrative: Exam Narrative: Patient appears chronically ill Const: General: no acute distress and uncomfortable HENMT: General nose exam: Normal nares present Other: Thrush Eyes: General: appearance normal, both eyes and all related structures Sclera: sclerae normal Neck: Neck: supple Resp: Effort & Inspection: normal respiratory effort Auscultation: clear to auscultation bilaterally Cardio: Rate: regular rate Rhythm: regular rhythm GI: Auscultation: normal bowel sounds Skin: General skin exam: normal color Neuro: Speech: normal speech Sensory Exam: normal sensation Extrem: General: normal to inspection Psych: Affect: Anxious affect present Objective Data Vital Signs Vital Signs: Vital Signs - 24 hr 04/15/20 22:26 04/15/20 22:31 04/16/20 01:00 Temperature 97.6 F Pulse Rate 126 H 116 H 136 H Respiratory Rate 26 H 18 18 Blood Pressure 112/74 134/90 139/9
[2020-04-16 16:20] LABS: Glucose Point of Care 400 (65-105)
[2020-04-16] MEDS: INSULIN ASPART (*BKC) 100 UNITS/ML SUB-Q (16:23)
[2020-04-16 20:18] LABS: Glucose Point of Care > 500 (65-105)
[2020-04-16] MEDS: INSULIN ASPART (*BKC) 100 UNITS/ML 12 UNITS SUB-Q (20:18)
[2020-04-16 20:48] LABS: Blood Urea Nitrogen 16 mg/dL (7-17); Calcium 7.9 mg/dL (8.4-10.2); Carbon Dioxide 19 mmol/L (22-30); Chloride 101 mmol/L (98-107); Estimated CRCL calculation 96 ml/min; Estimated Glomerular Filt Rate > 60; Glucose 513 mg/dL (65-105); Potassium 3.8 mmol/L (3.4-5.0); Sodium 127 mmol/L (137-145)
--- NOTE | 2020-04-16 21:13 | PM.EVENT ---
Event Note Event Note Event Note: Nursing staff had called to notify me the patient's glucoses greater than 500. Patient was given 12 units of NovoLog. Her repeat BMP demonstrated a gap of 7 and improved bicarb from 16 up to 19. As I was talking to the nursing staff regarding the repeat labs the patient notified staff that she was leaving AMA.
--- NOTE | 2020-04-16 21:20 | PCDIET ---
Spoke with pt regarding dangers of leaving with her blood sugars. Crying upset with someone threatening to go to her house and hurt her mother. Explained to her that she did not have to go to ICU. If that is what she was upset about. Insisted she had to go home and that her mother was coming to get her. Instructed her that was very important to check her blood sugar when she gets home.
[2020-04-22 14:18] LABS: Reference Lab Test Result >14.0%
== END 2020-04-16 21:32 | disposition home or self-care (01) | DRG 420 ==
LOC: ANHED 04-16 00:52 → ANHICU 04-16 01:35 → ANH2MED 04-16 15:27
PROVIDERS: Internal Medicine; Admitting Provider Internal Medicine; Emergency Provider Emergency Medicine; PCP Internal Medicine; Visit Provider Internal Medicine
DX: E10.10 Type 1 diabetes mellitus with ketoacidosis without coma (principal); N39.0 Urinary tract infection, site not specified; D75.1 Secondary polycythemia; Z79.4 Long term (current) use of insulin; B37.0 Candidal stomatitis; N28.89 Other specified disorders of kidney and ureter; F15.10 Other stimulant abuse, uncomplicated; F17.210 Nicotine dependence, cigarettes, uncomplicated
CPT/HCPCS: 36415; 51701; 71045; 74176; 80048; 80053; 80307; 81001; 81025; 82010; 82948; 83036; 83735; 84100; 85025; 85027; 86703; 86705; 86803; 87040; 87086; 87088; 87340; 96361; 96365; 96375; 96376; 99285; A9270; G0432; J0696; J1650; J1815; J3480; J7030; J7050

== ENCOUNTER 2020-07-04 19:03 | Emergency (ER) | payer OTHER, SELFPAY | END 2020-07-04 19:15 | disposition left against medical advice (07) | LOC: ANHED 08-01 15:10 | PROVIDERS: PCP Internal Medicine | DX: Z53.21 Procedure and treatment not carried out due to patient leaving prior to being seen by health care provider (principal) | CPT/HCPCS: 99199 ==

== ENCOUNTER 2020-09-30 20:28 | Inpatient (IN) | payer OTHER, SELFPAY ==
[2020-09-30 20:46] VITALS: BP 130/98; PULSE 98; RESP 20; TEMP 36.4; O2SAT 100
[2020-09-30 20:52] VITALS: O2SAT 100
--- NOTE | 2020-09-30 20:52 | PC.NURSE ---
Patient's bedside glucose is reading high.
--- NOTE | 2020-09-30 20:57 | ECG_ITS ---
Measurements Intervals [place] Rate: 105 P: 86 NJ: 116 QRS: 102 QRSD: 86 T: 74 QT: 360 QTc: 477 Interpretive Statements SINUS TACHYCARDIA WITH SHORT [place] INTERVAL RIGHT ATRIAL ENLARGEMENT POSSIBLE LEFT ATRIAL ENLARGEMENT BASELINE WANDER- AVR, AVL, V1, V4-V6 ABNORMAL ECG Electronically Signed On 10-01-2020 7:29:15 RAW SHELLFISH PREPARER by Estiven Farah D.O.
--- NOTE | 2020-09-30 20:59 | ED.RECABL ---
HPI - Recheck/Abnormal Lab/Rx General Chief Complaint: Recheck/Abnormal Lab/Rx Stated Complaint: n/v, dka Time Seen by Provider: 09/30/20 20:52 History of Present Illness HPI narrative: 35 yo female w/ h/o type I DM, DKA, noncompliance presents to the ED from home for high blood sugar. She is either unwilling or unable to provide any history. Blood sugar read high. She has presented similarly in the past and been found to be in DKA. Related Data Home Medications Medication Instructions Recorded Confirmed gabapentin 600 mg PO TID 08/25/19 04/16/20 ibuprofen 800 mg PO Q6H PRN 08/25/19 04/16/20 insulin glargine [Lantus Solostar 30 unit SUBCUT BID 08/25/19 04/16/20 U-100 Insulin] insulin lispro See Rx Instructions .ROUTE .COMPLEX 08/25/19 04/16/20 Allergies Allergy/AdvReac Type Severity Reaction Status Date / Time No Known Allergies Allergy Verified 11/10/19 19:01 Review of Systems Review of Systems: ROS unobtainable: Yes unobtainable due to medical condition and unobtainable due to mental status PMFSH Past Medical History Medical History (Updated 09/30/20 @ 23:31 by Jagdish Sims MD) Ankle fracture, right Anxiety Asthma Bipolar disorder Bronchitis Depression Diabetic peripheral neuropathy Ectopic HLD (hyperlipidemia) HPV (human papilloma virus) infection Diagnosed 2016 with history of LEEP Methamphetamine abuse PCOS (polycystic ovarian syndrome) Pulmonary embolism December 2018 with hypercoagulable workup indicating 1 copy of the MTHFR DNA mutation Schizophrenia Type 1 diabetes mellitus Diagnosed in the last several years. She has been hospitalized for hyperosmolar hyperglycemic diabetic syndrome and DKA in August 2019 and November 2019. Last hemoglobin A1c was greater than 14 in November 2019 and greater than 14 this hospitalization Surgical History Surgical History H/O LEEP History of laparotomy For an ectopic of the left fallopian tube Hx of cholecystectomy Family History Family History Grandparent Diabetes mellitus Acute myocardial infarction Hypertension CHF (congestive heart failure) Social History Social History Social History: History of IV drug abuse. Her mother is her surrogate decision maker. Smoking packs per day: 0.5 Smoking cigarettes per day: 10.0 Years smoked: 16 Smoking pack-years: 8.00 Smoking status: Current every day smoker Tobacco type: cigarettes Alcohol intake: unknown Substance use: current Substance use type: marijuana and methamphetamine Last use: 01/18/20, patient has also used heroin in the past. Additional living arrangements comments: She lives with her mother in [place]. She has 3 sons but they do not live with her. Gender identity (if verbalized by the patient): Female Spiritual care concerns: No Agree to blood products: Yes Exam Const: General: ill appearing acutely and chronically Nutritional Appearance: thin Other: Lethargic HENMT: Mouth: Yes dry mucous membranes Eyes: Pupils: Equal, round and reactive pupils present Neck: Neck: normal visual inspection Resp: Effort & Inspection: tachypneic Auscultation: clear to auscultation bilaterally Cardio: Rate: tachycardic Rhythm: regular rhythm GI: GI Palp: Yes Soft to palpation, Yes Tenderness to palpation present (GI) and No Guarding due to palpation present (GI) Skin: General skin exam: normal color Neuro: Other: Lethargic. Not answering question or participating in exam Extrem: General: no edema Course Vital Signs Vital signs: Vital Signs Temperature 36.4 C L 09/30/20 20:46 Pulse Rate 98 09/30/20 20:46 Respiratory Rate 20 09/30/20 20:46 Blood Pressure 130/98 H 09/30/20 20:46 Pulse Oximetry 100 09/30/20 20:46 [facility]
[2020-09-30] MEDS: SODIUM CHLORIDE 0.9% IV 1,000 ML 999 ML IV CONT ×2 (21:13→23:10)
[2020-09-30 21:34] LABS: Base Excess ABG -27.2 mEq/l (+/-2.0); Fractional Inspired Oxygen 21 %; HCO3 ABG 2.2 mEq/l (22.0-26.0); Oxygen Content ABG 20.8 %vol (16.0-22.0); Oxygen Saturation ABG 97.3 % (95.0-100.0); Oxyhemoglobin 96.8 % THb (90.0-100.0); PO2 ABG 139.3 mmHg (80.0-100.0); PO2 FiO2 Ratio Arterial Blood 6.63 %; Total Hemoglobin 15.1 g/dL (12.0-18.0)
[2020-09-30 21:38] LABS: Device ROOM AIR; Modified Allen's Test Pass; PCO2 ABG 9.2 mmHg (35.0-45.0); Site Drawn RIGHT RADIAL; pH ABG 6.993 (7.350-7.450)
[2020-09-30 21:47] LABS: Glucose Point of Care > 500 (65-105)
[2020-09-30 22:14] LABS: Basophils Absolute Auto 0.2 K/mm3 (0.0-0.1); Basophils Percent Auto 0.6 % (0.2-1.2); Eosinophils Percent Auto 0.1 % (0-4.4); Hematocrit 44.9 % (37.0-47.0); Hemoglobin 14.2 g/dL (12.0-15.0); Immature Granulocyte Absolute 0.79 K/mm3 (0.00-0.031); Lymphocytes Absolute Auto 5.74 K/mm3 (0.9-3.2); Lymphocytes Percent Auto 14.7 % (18.3-44.2); Mean Corpuscular HGB Conc 31.6 g/dl (32-36); Mean Platelet Volume 10.5 fl (7.4-10.4); Monocytes Absolute Auto 1.9 K/mm3 (0.1-0.6); Neutrophils Absolute Auto 30.3 K/mm3 (1.3-6.7); Neutrophils Percent Auto 77.6 % (45.5-73.1); Platelet Count Result 401 k/mm3 (150-375); Red Blood Count 4.58 M/mm3 (4.2-5.4); Red Cell Distribution Width 12.7 % (11.5-14.5); White Blood Count 39.1 K/mm3 (4.5-10.0)
[2020-09-30] MEDS: SODIUM BICARBONATE 8.4% 50 MEQ/50 ML VIAL 100 MEQ IV PUSH (22:19)
[2020-09-30 22:23] LABS: INR 1.1
[2020-09-30 22:24] LABS: Partial Thromboplastin Time 28.5 SECONDS (22.3-36.8)
[2020-09-30 22:27] LABS: Alanine Aminotransferase 32 U/L (4-35); Albumin Level 4.2 g/dL (3.5-5.1); Alkaline Phosphatase 195 U/L (38-126); Aspartate Amino Transferase 19 U/L (14-36); Bilirubin,Total 0.3 mg/dL (0.2-1.3); Blood Urea Nitrogen 25 mg/dL (7-17); Calcium 8.4 mg/dL (8.4-10.2); Carbon Dioxide < 5 mmol/L (22-30); Chloride 104 mmol/L (98-107); Estimated Glomerular Filt Rate 57; Phosphorus 7.6 mg/dL (2.5-4.5); Potassium 4.8 mmol/L (3.4-5.0); Sodium 137 mmol/L (137-145)
[2020-09-30 22:37] LABS: Add Urine Microscopic? YES; Appearance Urine Clear (Clear); Bilirubin Urine Negative (Negative); Blood Urine Negative (Negative); Color Urine Straw (Yellow); Glucose Urine UA 3+ mg/dL (Negative); Ketones Urine 2+ mg/dL (Negative); Leukocyte Esterase Ur Negative LEU/UL (Negative); Nitrate Urine Negative (Negative); Protein Urine 2+ mg/dL (Negative); RBC Urine 0-2 /hpf (0-2); Specific Grav Ur 1.022 (1.001-1.035); Squamous Epithelial Cell Urine Rare /hpf (Few); Urobilinogen Urine Negative mg/dL (<2.0); WBC Urine 0-3 /hpf
[2020-09-30 22:39] LABS: Glucose 704 mg/dL (65-105)
[2020-09-30 22:48] LABS: Amphetamine Screen Urine Positive (Negative); Barbiturate Screen Urine Negative (Negative); Benzodiazepines Screen Urine Negative (Negative); Cannabinoid Screen Urine Negative (Negative); Cocaine Screen Urine Negative (Negative); Methadone Screen Urine Negative (Negative); Opiate Screen Urine Negative (Negative); Phencyclidine Screen Urine Negative (Negative)
[2020-09-30 22:50] LABS: CRP < 0.5 mg/dL (<1.0)
--- NOTE | 2020-09-30 22:58 | PM.IMHP ---
H&P: HPI History of Present Illness Date/Time: 09/30/20 22:58 Chief Complaint: Nausea vomiting Narrative: Madai Jackson is a 35 year old female with past medical history of type 1 diabetes, polysubstance abuse, multiple admissions for DKA due to insulin noncompliance presents the ED with complaints of nausea and vomiting. Patient did not give any history and would not talk to me or the nurse or the ER provider. She complained of nausea did not provide any other review of systems. She did not indicate when symptoms started or what problem she has had with her insulin. Information gathered from chart review. Patient has had multiple admissions for the same issue in the past with DKA from insulin noncompliance. Patient was admitted with DKA and 04/16/2020, 01/23/2020 associated with UTI, 11/11/2019, 08/26/2019, 12/2018. Upon chart review appears patient was diagnosed in 2018. Hot Header Operator is Dr. Posey. Hemoglobin A1c >14 on 01/22/2020. In the ED: UDS positive for amphetamine, it UA shows some hyaline casts, WBC 38, glucose 704, bicarb less than 5, ABG consistent with acidemia with pH 6.9, DKA consistent with beta hydroxybutyrate 13.6. Blood cultures drawn. With low pH patient was given bicarb, and started on insulin drip for DKA. Training Executive was notified and patient is being admitted to ICU for DKA. Review of Systems Review of Systems: Narrative: Patient when not answer my question, unable to provide ROS unobtainable: Yes unobtainable due to medical condition PMFSH Past Medical History Medical History Ankle fracture, right Anxiety Asthma Bipolar disorder Bronchitis Depression Diabetic peripheral neuropathy Ectopic HLD (hyperlipidemia) HPV (human papilloma virus) infection Diagnosed 2016 with history of LEEP Methamphetamine abuse PCOS (polycystic ovarian syndrome) Pulmonary embolism December 2018 with hypercoagulable workup indicating 1 copy of the MTHFR DNA mutation Schizophrenia Type 1 diabetes mellitus Diagnosed in the last several years. She has been hospitalized for hyperosmolar hyperglycemic diabetic syndrome and DKA in August 2019 and November 2019. Last hemoglobin A1c was greater than 14 in November 2019 and greater than 14 this hospitalization Surgical History Surgical History H/O LEEP History of laparotomy For an ectopic of the left fallopian tube Hx of cholecystectomy Family History Family History Grandparent Diabetes mellitus Acute myocardial infarction Hypertension CHF (congestive heart failure) Social History Social History Social History: History of IV drug abuse. Her mother is her surrogate decision maker. Smoking packs per day: 0.5 Smoking cigarettes per day: 10.0 Years smoked: 16 Smoking pack-years: 8.00 Smoking status: Current every day smoker Tobacco type: cigarettes Second hand tobacco smoke exposure: Yes Alcohol intake: unknown Substance use: current Substance use type: amphetamines Last use: 01/18/20, patient has also used heroin in the past. Additional living arrangements comments: She lives with her mother in [place]. She has 3 sons but they do not live with her. Gender identity (if verbalized by the patient): Female Spiritual care concerns: No Agree to blood products: Yes Meds Home Medications and Allergies Home Medications Medication Instructions Recorded Confirmed Type No Home Medications 10/01/20 10/01/20 History Allergies Allergy/AdvReac Type Severity Reaction Status Date / Time No Known Allergies Allergy Verified 11/10/19 19:01 Vital Signs Vital Signs - 24 hr 09/30/20 20:46 09/30/20 20:52 Temperature 36.4 C L Pulse Rate 98 Respiratory R
[2020-09-30] MEDS: SODIUM BICARBONATE 8.4% 150 MEQ in DEXTROSE 5% 1,000 ML 950 ML 50 MEQ IV CONT (23:10)
[2020-09-30] MEDS: INSULIN HUMAN REGULAR (*BKC) 100 UNITS in SODIUM CHLORIDE 0.9% IV 99 ML 12.9 UNITS IV CONT (23:11)
[2020-09-30] MEDS: INSULIN HUMAN REGULAR (*BKC) 100 UNITS/ML IV PUSH (23:11)
[2020-09-30 23:25] LABS: Glucose Point of Care > 500 (65-105)
[2020-09-30] MEDS: SODIUM CHLORIDE 0.9% IV 2,000 ML 999 ML IV CONT (23:33)
[2020-09-30 23:43] LABS: Lactic Acid Reflex 3.3 mmol/L (0.7-2.1)
[2020-09-30 23:52] VITALS: BP 117/102; PULSE 107; RESP 17; TEMP 36.6; O2SAT 100
[2020-10-01] VITALS (13 sets, daily range): BP systolic 94–124; BP diastolic 68–82; PULSE 71–106; RESP 14–20; TEMP 36.2–37.2; O2SAT 93–100; BMI 16.9
--- NOTE | 2020-10-01 00:42 | ADMIMU ---
This patient, Madai Jackson, was admitted to ICU status, and placed in Intensive Care Unit-8 at 0005. Patient/family oriented to hospital policies and general routines including ID bracelet, bed and alarms, visiting hours, pain management, procedures, bathroom and other care routines, personal items, smoking policy, room service/diet, and visiting hours. Information on how to activate the Rapid Response Team has been discussed. Patient/Family are encouraged to report perceived risks to care and to ask questions if they do not understand what they are told or what they should do.
--- NOTE | 2020-10-01 00:43 | PC.NURSE ---
Pt uncooperative refusing lab draws and will only answer random questions for admission assessment.
--- NOTE | 2020-10-01 00:57 | PC.NURSE ---
Glucose obtained by laboratory due to being to high for glucometer to read
[2020-10-01 01:20] LABS: Hemoglobin A1C > 14.0 % (<5.7)
[2020-10-01 01:27] LABS: Fractional Inspired Oxygen 21 %; HCO3 VBG 7.1 mEq/l (24.0-30.0); PO2 VBG 28.2 mmHg (35.0-45.0)
[2020-10-01 01:28] LABS: Blood Urea Nitrogen 24 mg/dL (7-17); Calcium 8.3 mg/dL (8.4-10.2); Carbon Dioxide < 5 mmol/L (22-30); Chloride 108 mmol/L (98-107); Estimated CRCL calculation 55 ml/min; Estimated Glomerular Filt Rate > 60; Glucose 551 mg/dL (65-105); Potassium 4.2 mmol/L (3.4-5.0); Sodium 145 mmol/L (137-145)
[2020-10-01 01:28] LABS: pH VBG 7.072 (7.300-7.400)
[2020-10-01 01:29] LABS: Device ROOM AIR; PCO2 VBG 25.1 mmHg (42.0-48.0)
[2020-10-01] MEDS: SODIUM CHLORIDE 0.9% IV 1,000 ML 150 ML IV CONT (01:48)
[2020-10-01 02:29] LABS: Reflex Lactic Acid Yes or No Add Lactic
[2020-10-01 02:53] LABS: Glucose Point of Care 357 (65-105)
[2020-10-01 03:51] LABS: Glucose Point of Care 292 (65-105)
[2020-10-01 04:43] LABS: Fractional Inspired Oxygen 21 %; HCO3 VBG 10.9 mEq/l (24.0-30.0); PO2 VBG 67.9 mmHg (35.0-45.0); pH VBG 7.309 (7.300-7.400)
[2020-10-01 04:44] LABS: Device ROOM AIR; PCO2 VBG 22.2 mmHg (42.0-48.0)
[2020-10-01 04:49] LABS: Glucose Point of Care 255 (65-105)
[2020-10-01 05:05] LABS: Lactic Acid 1.4 mmol/L (0.7-2.1)
[2020-10-01 05:08] LABS: Anion Gap 15 mmol/L (8-16); Blood Urea Nitrogen 20 mg/dL (7-17); Calcium 7.6 mg/dL (8.4-10.2); Carbon Dioxide 14 mmol/L (22-30); Chloride 116 mmol/L (98-107); Cholesterol 126 mg/dL (0-200); Estimated CRCL calculation 88 ml/min; Estimated Glomerular Filt Rate > 60; Glucose 258 mg/dL (65-105); HDL Direct 31 mg/dL; Potassium 3.1 mmol/L (3.4-5.0); Sodium 145 mmol/L (137-145); Triglycerides 224 mg/dL (<150)
[2020-10-01 05:43] LABS: LDL Cholesterol Direct < 30 mg/dL
[2020-10-01] MEDS: KCL 20 MEQ/D5/0.45% SOD CHL 1,000 ML 150 ML IV CONT (06:11)
[2020-10-01 06:14] LABS: Glucose Point of Care 234 (65-105)
[2020-10-01] MEDS: INSULIN HUMAN REGULAR (*BKC) 100 UNITS in SODIUM CHLORIDE 0.9% IV 99 ML 12.1 UNITS IV CONT (06:49)
[2020-10-01 06:54] LABS: Glucose Point of Care 211 (65-105)
[2020-10-01 08:14] LABS: Glucose Point of Care 155 (65-105)
[2020-10-01] MEDS: ENOXAPARIN 40 MG/0.4 ML SYRINGE SUB-Q (08:23)
[2020-10-01 08:30] LABS: Hematocrit 36.6 % (37.0-47.0); Hemoglobin 12.4 g/dL (12.0-15.0); Mean Corpuscular HGB Conc 33.9 g/dl (32-36); Mean Corpuscular Volume 91.5 fl (80-100); Mean Platelet Volume 10.4 fl (7.4-10.4); Platelet Count Result 303 k/mm3 (150-375); Red Cell Distribution Width 12.6 % (11.5-14.5); White Blood Count 28.5 K/mm3 (4.5-10.0)
[2020-10-01 08:43] LABS: Band Neutrophils Percent 8 % (0-6); Lymphocytes Absolute Manual 5.98 K/mm3 (1.1-4.5); Monocytes Absolute Manual 1.71 K/mm3 (0.1-0.90); Monocytes Percent Manual 6 % (3-9); Neutrophils Percent Manual 65 % (46-73); Platelet Estimate Adequate (Adequate); Total Cells Counted 100
[2020-10-01 08:47] LABS: Anion Gap 9 mmol/L (8-16); Blood Urea Nitrogen 20 mg/dL (7-17); Calcium 7.8 mg/dL (8.4-10.2); Carbon Dioxide 18 mmol/L (22-30); Chloride 117 mmol/L (98-107); Estimated CRCL calculation 88 ml/min; Estimated Glomerular Filt Rate > 60; Glucose 171 mg/dL (65-105); Potassium 3.4 mmol/L (3.4-5.0); Sodium 144 mmol/L (137-145)
[2020-10-01] MEDS: INSULIN GLARGINE (*BKC) 100 UNITS/ML 25 UNITS SUB-Q ×2 (10:07→20:45)
[2020-10-01] MEDS: POTASSIUM CHLORIDE 20 MEQ TABLET 40 MEQ PO (10:11)
[2020-10-01 10:12] LABS: Glucose Point of Care 137 (65-105)
[2020-10-01 11:37] LABS: Glucose Point of Care 155 (65-105)
--- NOTE | 2020-10-01 12:05 | WPDCNINT ---
Assessment and Plan Assessment and plan (1) DKA (diabetic ketoacidoses): Qualifiers: Diabetes mellitus complication detail: without coma Diabetes mellitus type: type 1 Qualified Code(s): E10.10 - Type 1 diabetes mellitus with ketoacidosis without coma Code(s): E11.10 - Type 2 diabetes mellitus with ketoacidosis without coma Status: Acute Assessment and Plan: Patient presented with diabetic ketoacidosis, hyperglycemia, severe acidosis requiring IV bar carbonate and bicarbonate infusion for a short amount of time. Patient was given adequate fluids, started insulin infusion transferred to the ICU for further management. -anion gap is closed, will transition placement long-acting insulin sliding scale insulin -hemoglobin A1c > 14 on this admission -patient is probably noncompliant with insulin and Accu-Cheks (2) Leukocytosis: Qualifiers: Leukocytosis type: unspecified Qualified Code(s): D72.829 - Elevated white blood cell count, unspecified Code(s): D72.829 - Elevated white blood cell count, unspecified Status: Acute Assessment and Plan: Significant leukocytosis without fraction. Could be secondary to stress and hemoconcentration. -WBC count remains elevated but has come down significantly. -patient is afebrile, continue to monitor antibiotics as of now (3) Peripheral neuropathy: Code(s): G62.9 - Polyneuropathy, unspecified Status: Acute Assessment and Plan: Patient does not answer which she takes at home (4) Dehydration: Code(s): E86.0 - Dehydration Status: Acute Assessment and Plan: Resolved patient adequately fluid-resuscitated, will give additional IV fluid bolus this morning (5) Tachycardia: Code(s): R00.0 - Tachycardia, unspecified Status: Acute Assessment and Plan: Resolved likely related to dehydration, DKA, stress Additional Plan Code status: Full code Critical care time: 42 minutes Due to a high probability of clinically significant, life threatening deterioration, the patient required my highest level of preparedness to intervene emergently and I personally spent this critical care time directly and personally managing the patient. This critical care time included obtaining a history; examining the patient; pulse oximetry; ordering and review of studies; arranging urgent treatment with development of a management plan; evaluation of patient's response to treatment; frequent reassessment; and discussions with other providers. It was exclusive of separately billable procedures and treating other patients and teaching time. Please see Assessment and Plan section and the rest of the note for further information on patient assessment and treatment Product Owner Consult Note Consult date: 10/01/20 Time Seen: 07:14 Reason for consult: Diabetic ketoacidosis, nausea, vomiting, hyperglycemia HPI: Madai Jackson is a 35 year old female with past medical history of anxiety, asthma, bipolar disorder, bronchitis, depression, diabetic peripheral neuropathy, history of DKA with multiple admissions, hyperlipidemia, methamphetamine abuse polycystic ovarian syndrome, pulmonary embolism presented to the ED on 09/30/2020 with complains of nausea, vomiting and elevated blood sugars. Patient was found to be in diabetic ketoacidosis in the ER, given IV fluids and started on insulin infusion per DKA protocol. Patient has had multiple admissions to [facility] for diabetic ketoacidosis for insulin noncompliance. He also has signed out AMA the last admission in August 2020. Her urine drug screen in the ER was positive for amphetamines. PH was 6.9, patient was given IV bicarbonate, started on bicarb infusion which was later stopped. Patient was transferred to the ICU for further management of DKA. This morning in the ICU, patient does not acknowledge my presence. Opens her eyes but does not answer any questions. Has bee
--- NOTE | 2020-10-01 13:04 | PC.NURSE ---
This patient, Madai Jackson, was received from ICU 8 on 10/01/20 at 1305. Patient/family oriented to unit policies and routines
--- NOTE | 2020-10-01 13:39 | PC.NURSE ---
This patient, Madai Jackson, was transferred to [facility] on 10/01/20 at 1255. Personal belongings sent with patient. Report given to RN. Appropriate documentation sent with patient.
--- NOTE | 2020-10-01 15:44 | PM.IMPN ---
Progress Note: A&P Assessment and Plan (1) DKA (diabetic ketoacidoses): Qualifiers: Diabetes mellitus complication detail: without coma Diabetes mellitus type: type 1 Qualified Code(s): E10.10 - Type 1 diabetes mellitus with ketoacidosis without coma Code(s): E11.10 - Type 2 diabetes mellitus with ketoacidosis without coma Status: Acute Assessment and Plan: -likely secondary to noncompliance as her previous DKA episodes have been, no sign of infection or any other cause for DKA -started on insulin drip, glucose was 700 and undetectable cap concern for profound acidemia -ABG showed pH 6.9, patient was given bicarb 2 amps and started on drip and will watch closely pH and stop bicarb drip if pH greater than 7.2 -checking BMPs q.4 hours, Accu-Cheks q.1 hour -IV fluid resuscitation 5 L boluses to be given -will reassess her home regimen to see how much basal bolus insulin she should be on 10/01/20 15:44 35-year-old female with history of type 1 diabetes uncontrolled with hemoglobin A1c of >14 multiple admission with DKA presented emergency department with a complaint abdominal pain nausea or vomiting patient was found to have DKA back was started IV fluid and IV infusion transferred to ICU, IV fluid and IV infusion were continued in ICU, this morning patient blood sugar have trended up her anion gap is closed and IV insulin infusion was stopped and started the patient on long-acting insulin and sliding scale, and patient is transferred out of ICU to medical floor, patient has been exposed to COVID-19 and being tested in isolated, patient is a very poor historian unable to provide much detail history review of symptom. States arm feeling better now. Patient has history of illicit drug abuse is positive for amphetamine. (2) Type 1 diabetes mellitus: Qualifiers: Diabetes mellitus complication status: with neurologic complications Diabetes mellitus complication detail: with unspecified neuropathy Qualified Code(s): E10.40 - Type 1 diabetes mellitus with diabetic neuropathy, unspecified Code(s): E10.9 - Type 1 diabetes mellitus without complications Status: Acute Assessment and Plan: -patient is noncompliant with her insulin regimen -optical goods worker in [place] Dr. Posey -previously was trying to set up insulin pump -will treat acute DKA now and figure out her insulin regimen in a.m. -consult early childhood special educator -checking hemoglobin A1c, previously was >14 (3) Peripheral neuropathy: Code(s): G62.9 - Polyneuropathy, unspecified Status: Acute Assessment and Plan: -NPO now, when she can tolerate p.o. will restart home gabapentin -neuropathy likely from diabetes (4) Leukocytosis: Qualifiers: Leukocytosis type: unspecified Qualified Code(s): D72.829 - Elevated white blood cell count, unspecified Code(s): D72.829 - Elevated white blood cell count, unspecified Status: Acute Assessment and Plan: -significant elevated WBC count, likely secondary to hemoconcentration with dehydration in DKA, will repeat in a.m. and trend -no clinical signs of infection, patient has no focal complaints other than nausea and vomiting which is consistent with DKA, holding off antibiotics at this time (5) Tachycardia: Code(s): R00.0 - Tachycardia, unspecified Status: Acute Assessment and Plan: -likely from dehydration, continue IV fluids resuscitation Additional Plan # other chronic conditions -history of polysubstance abuse: Heroin, methamphetamine, marijuana, unknown last use -history of schizophrenia/bipolar/anxiety/depression? No home medications for this -hyperlipidemia? Patient is on any medication for cholesterol Diet: NPO DVT prophylaxis: Lovenox Code status: Full code Disposition: Pending clinical course in ICU Date of service 09/30/2020 Subjective Date/time seen: 10/01/20 15:44 35-year-old female with history of type 1 diab
[2020-10-01 17:23] LABS: Glucose Point of Care 288 (65-105)
[2020-10-01] MEDS: INSULIN ASPART (*BKC) 100 UNITS/ML SUB-Q (17:27)
[2020-10-01 20:49] LABS: Glucose Point of Care 318 (65-105)
[2020-10-02] VITALS: BP 101/70; PULSE 81; RESP 16; TEMP 36.4; O2SAT 99
[2020-10-02 04:00] VITALS: BP 117/77; PULSE 105; RESP 16; TEMP 36.2; O2SAT 99
[2020-10-02 06:53] LABS: Anion Gap 10 mmol/L (8-16); Blood Urea Nitrogen 13 mg/dL (7-17); Calcium 8.5 mg/dL (8.4-10.2); Carbon Dioxide 18 mmol/L (22-30); Chloride 107 mmol/L (98-107); Estimated CRCL calculation 112 ml/min; Estimated Glomerular Filt Rate > 60; Glucose 284 mg/dL (65-105); Magnesium 1.6 mg/dL (1.6-2.3); Potassium 3.6 mmol/L (3.4-5.0); Sodium 135 mmol/L (137-145)
[2020-10-02 08:00] VITALS: BP 101/68; PULSE 77; RESP 18; TEMP 37.1; O2SAT 99
[2020-10-02] MEDS: INSULIN ASPART (*BKC) 100 UNITS/ML SUB-Q (08:12)
[2020-10-02] MEDS: INSULIN GLARGINE (*BKC) 100 UNITS/ML 25 UNITS SUB-Q (08:14)
[2020-10-02] MEDS: ENOXAPARIN 40 MG/0.4 ML SYRINGE SUB-Q (08:20)
--- NOTE | 2020-10-02 08:28 | PC.NURSE ---
Patient would not take her potassium or magnesium this morning. The patient states that I'm not taking that nasty shit. I educated the patient on the importance of potassium and magnesium. The patient stated that she doesn't care. At this point the patient began to raise her voice at me. The patient was upset because it will take 30-45 minutes to get her breakfast tray up. I explained to the patient that she can either wake up earlier to order or preorder her breakfast. The patient stated that this was staff's responsibility to make sure she was awake earlier enough to order her breakfast. At this point the patient was still yelling and not allowing me to assess her. I notified Dr. Figueroa. No further orders at this time.
[2020-10-02 08:32] LABS: Glucose Point of Care 313 (65-105)
--- NOTE | 2020-10-02 08:52 | PC.NURSE ---
I overheard the patient yelling at the assigned MECHANICAL DOOR REPAIRER for the day. The patient is upst that staff will not provide her with additional sugar for her food. I educated the patient that her blood sugar was 313 today and that we can not offer her extra sugar. The patient raised her voice louder and continued to yell myself and the staff. The patient states that she will just starve herself now. notified.
--- NOTE | 2020-10-02 10:31 | PC.NURSE ---
I entered the room to reset the patient's bed alarm. The patient was laying on the bedside table crying stating that she's not allowed to do anything here. The patient continued to cry and stated that she wanted to go home. At this point the patient told me to give her clothes and that she would like to go home. I removed the patient's IV. The patient states that we are pushing her out of the hospital. I educated the patient about leaving against medical advice. The patient states that this hospital is getting worse and worse. I assisted the patient to get a working phone so that she could call her ride.
--- NOTE | 2020-10-02 11:18 | PM.DS ---
DS: Admitting Diagnosis Admitting Diagnosis Admitting Diagnosis: Nausea vomiting DKA DS: Discharge Diagnosis Discharge Diagnosis (1) DKA (diabetic ketoacidoses): Qualifiers: Diabetes mellitus complication detail: without coma Diabetes mellitus type: type 1 Qualified Code(s): E10.10 - Type 1 diabetes mellitus with ketoacidosis without coma Code(s): E11.10 - Type 2 diabetes mellitus with ketoacidosis without coma Status: Acute Assessment and Plan: -likely secondary to noncompliance as her previous DKA episodes have been, no sign of infection or any other cause for DKA -started on insulin drip, glucose was 700 and undetectable cap concern for profound acidemia -ABG showed pH 6.9, patient was given bicarb 2 amps and started on drip and will watch closely pH and stop bicarb drip if pH greater than 7.2 -checking BMPs q.4 hours, Accu-Cheks q.1 hour -IV fluid resuscitation 5 L boluses to be given -will reassess her home regimen to see how much basal bolus insulin she should be on 10/01/20 15:44 Chief Complaint: Nausea vomiting In the ED: UDS positive for amphetamine, it UA shows some hyaline casts, WBC 38, glucose 704, bicarb less than 5, ABG consistent with acidemia with pH 6.9, DKA consistent with beta hydroxybutyrate 13.6. Blood cultures drawn. With low pH patient was given bicarb, and started on insulin drip for DKA. Brim Ironer Hand was notified and patient is being admitted to ICU for DKA. (2) Type 1 diabetes mellitus: Qualifiers: Diabetes mellitus complication status: with neurologic complications Diabetes mellitus complication detail: with unspecified neuropathy Qualified Code(s): E10.40 - Type 1 diabetes mellitus with diabetic neuropathy, unspecified Code(s): E10.9 - Type 1 diabetes mellitus without complications Status: Acute Assessment and Plan: -patient is noncompliant with her insulin regimen -offbearer in [place] Dr. Posey -previously was trying to set up insulin pump -will treat acute DKA now and figure out her insulin regimen in a.m. -consult asthma educator -checking hemoglobin A1c, previously was >14 (3) Peripheral neuropathy: Code(s): G62.9 - Polyneuropathy, unspecified Status: Acute Assessment and Plan: -NPO now, when she can tolerate p.o. will restart home gabapentin -neuropathy likely from diabetes (4) Leukocytosis: Qualifiers: Leukocytosis type: unspecified Qualified Code(s): D72.829 - Elevated white blood cell count, unspecified Code(s): D72.829 - Elevated white blood cell count, unspecified Status: Acute Assessment and Plan: -significant elevated WBC count, likely secondary to hemoconcentration with dehydration in DKA, will repeat in a.m. and trend -no clinical signs of infection, patient has no focal complaints other than nausea and vomiting which is consistent with DKA, holding off antibiotics at this time (5) Tachycardia: Code(s): R00.0 - Tachycardia, unspecified Status: Acute Assessment and Plan: -likely from dehydration, continue IV fluids resuscitation DS: Summary Hospital Course Reason for hospitalization: Chief Complaint: Nausea vomiting Narrative: Madai Jackson is a 35 year old female with past medical history of type 1 diabetes, polysubstance abuse, multiple admissions for DKA due to insulin noncompliance presents the ED with complaints of nausea and vomiting. Patient did not give any history and would not talk to me or the nurse or the ER provider. She complained of nausea did not provide any other review of systems. She did not indicate when symptoms started or what problem she has had with her insulin. Information gathered from chart review. Patient has had multiple admissions for the same issue in the past with DKA from insulin noncompliance. Patient was admitted with DKA and 04/16/2020, 01/23/2020 associated with UTI, 11/11/2019, 08/26/2019, 12/2018.
[2020-10-02 22:25] LABS: SARS-CoV-2 RNA PCR Negative
== END 2020-10-02 11:01 | disposition left against medical advice (07) | DRG 420 ==
LOC: ANHED 23:31 → ANHICU 10-01 01:51 → ANH3MEDSUR 10-06 09:41 → ANHICU 10-06 09:41
PROVIDERS: Internal Medicine; Admitting Provider Student in an Organized Health Care Education/Training Program; Emergency Provider Emergency Medicine; PCP Internal Medicine; Visit Provider Family Medicine
DX: E10.10 Type 1 diabetes mellitus with ketoacidosis without coma (principal); E10.42 Type 1 diabetes mellitus with diabetic polyneuropathy; Z91.14 Patient's other noncompliance with medication regimen; Z20.828 Contact with and (suspected) exposure to other viral communicable diseases; D72.829 Elevated white blood cell count, unspecified; R00.0 Tachycardia, unspecified; F41.8 Other specified anxiety disorders; F20.9 Schizophrenia, unspecified; Z86.711 Personal history of pulmonary embolism; Z90.49 Acquired absence of other specified parts of digestive tract; F17.210 Nicotine dependence, cigarettes, uncomplicated; F15.10 Other stimulant abuse, uncomplicated
CPT/HCPCS: 36415; 36600; 51701; 80048; 80053; 80061; 80307; 81001; 81025; 82010; 82803; 82805; 82948; 83036; 83605; 83735; 84100; 85025; 85610; 85730; 86140; 87040; 87077; 87635; 93005; 96361; 96374; 99291; A9270; C9803; J1650; J1815; J3480; J7030; J7070; U0003

== ENCOUNTER 2023-08-26 12:56 | Outpatient (CLI) | payer OTHER, SELFPAY | END 2023-08-26 12:57 | disposition home or self-care (01) | PROVIDERS: Visit Provider Nurse Practitioner Family | DX: Z80.3 Family history of malignant neoplasm of breast (principal) | CPT/HCPCS: 99199 ==